=== PATIENT | male | born 1955 | race Caucasian/White ===

== ENCOUNTER 2016-12-14 08:11 | Emergency (ER) | payer MEDICARE, MEDICAID ==
[~2016-12-14] VITALS: Ht 172.7 cm; Wt 95.3 kg
[~2016-12-14 08:11] MED LIST: ASPIRIN CHILDRE81 M1 PO; BACTRIM DS 8001 TAB PO; BROMFED DM 480480 ML PO; DIOVAN160 MG PO; KEFLEX 500MG.500 MG PO; LEVAQUIN 750 M750 MG PO; LISINOPRIL 20MG20 MG PO; LOPRESSOR 25MG.25 MG PO; MECLIZINE 25MG25 MG PO; NEXIUM20 MG PO; PHENERGAN 12.12.5 M1 PO; PLETAL 100MG T100 MG PO; PREDNISONE 20MG20 MG PO; PREVALITE 4GM PO4 GM PO; PRILOSEC20 M1 PO; TRAMADOL 50MG T50 MG PO
[2016-12-14] MEDS ORDERED: CLINDAMYCIN HC300 MG PO (08:41)
--- NOTE | 2016-12-14 08:43 | Emergency Room Report ---
History of Present Illness Time Seen by MD Selby Presenting Problem in Triage Pt arrived:Walked Presenting Problem:LEFT HAND INJURY Onset of symptoms date/time:12/14/1606/01/1099 or onset unknown for: Treatment Prior to Arrival: [facility] [facility] Provided by: Sepsis Risk Assessment: Temp: 97.0 B/P: 155/94 MAP: 114 Pulse: 104 Resp: 20 Recent fever? N Clinical Suspician of Infection? N Mental Status: 1 - Regular (Normal Baseline) Sepsis Risk:Possible Sepsis Risk Have you (or family members/close friends) recently traveled outside the [place]? N If Yes, where/when: Have you had exposure to infectious disease within the past month? N TB? Other? Specify: pt tripped over a fan last night getting up to [employer] bathroom at 11pm. 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 He states he does not think his hand is broken, but that it has become swollen. pt does not know when his last tetanus shot was. Has some moderate achy pain on the back of his hand he denies any wrist pain he states he is moving his fingers as well as he normally does he is chronically not able to extend his fingers. ALLERGIES Coded Allergies: pneumococcal vaccine (Mild, 09/01/15) Home Medications Active Scripts MECLIZINE HCL (Meclizine 25MG) 25 MG PO QID #40 TABLET Prov: 09/08/15 Metoprolol Tartrate (Lopressor) 25 MG PO BID #60 Ref 2 Prov: 03/05/11 Reported Medications Aspirin 81 MG PO DAILY OMEPRAZOLE MAGNESIUM (Prilosec 20MG) 20 MG PO DAILY Valsartan (Diovan 160MG) 160 MG PO DAILY History Medical History General CAD? No Angina: No CT: No Hypertension? Yes Hyperlipidemia? Yes CHF? No DVT? No PE? No COPD? No Asthma? No Anemia? No GERD? Yes Gastric ulcers? No GI Bleed? No Hernia? No Thyroid Problems? No Hypothyroidism? No CVA? Yes Seizures? No Diabetes? No Renal Insuffiency? No End Stage Renal Disease? No UTI? No Stones? No BPH? No GB Disease: Yes Nephritic Syndrome? No Asplenia? No Hepatitis? No Sickle Cell Disease? No Arthritis? No Migraines? No Cataracts? No Glaucoma? No MRSA? No HIV? No TB? No Anxiety? No Depression? No Cancer? No More? No Immunization Hx DT/Tetanus > 10 Years Ago Flu 2012-FSN Pneumonia Excluded/Contraindicated Surgical Hx Previous Surgery?Y GALLBLADDER HAND SURGERY (CHILD) FOOT SURGERY (CHILD) Family History Family Hx Diabetes No CAD No Hypertension Yes Hyperlipidemia Yes Cancer No TB No Social History Smoking Hx Smoker: Current Every Day Smoker Tobacco: No Type Cigarettes Packs/day N/A Alcohol Alcohol: Yes Review of Systems All Other Systems Reviewed and Negative Physical Exam Vital Signs Vital Signs Date Time Temp Pulse Resp B/P Pulse O2 O2 Flow FiO2 Ox Delivery Rate 12/14 0815 97.0 104 20 155/94 97 General Appearance: Nontoxic Head: Normocephalic, without obvious abnormality, atraumatic. Eyes: conjunctiva/corneas clear ENT: Mucous membranes moist. Neck: No jugular venous distention. Extremities: no edema Musculoskeletal: left hand patient has swelling and contusion and abrasion on the posterior aspect of the left hand. He has some scabs there and edema and swelling on the back of his hand he states his hand is nontender his wrist is nontender. The refill intact pulses intact. His hand is basically chronically contractured with limited mobility he's not able to extend his fingers at baseline. He states his movement in his hand is at its baseline. No scaphoid tenderness. Skin: No rashes or lesions to exposed skin. Neurologic: Alert. No gross focal deficits Psychiatric: Normal affect (Erasmo SLADE, Addy) General Appearance normal appearance Respiratory Status No: respiratory distress. Cardiovascular no JVD Neurologic alert Medical Decision Making LABS/Meds/Orders Pt receiving controlled substance in ED? No Results/Orders Orders Procedure Date/time Status WOUND CARE PER NURSE 12/14 0828 Active HAND-LT-3 VIEWS 12/14 0817 Active XRAY/CT/US XRAY/CT/US XRAY hand XR interpretation by reviewed by me Xray Results no fracture seen (RIGHT hand no fracture noted) Comment LEFT hand no fracture Departure Departure Time of Disposition 0838 Disposition DC Home or Self Care(routine) Clinical Impression Primary Impression: Contusion of hand, left Condition STABLE Referrals Andrew Collins MD Patient Instructions Contusion Additional Instructions Wash hands twice a day with soap and water Take antibiotics Return if worse or any signs of infection develop Follow-up with the orthopedic doctor as needed if not improving Discharge Counseling Counseled pt/family regarding diagnosis, test results, medications/RX, home care, follow up needs Prescriptions Current Visit Scripts Clindamycin Hcl (Clindamycin 300MG) 300 MG PO TID #30 CAP ED Critical Care Critical Care No at 0842
--- NOTE | 2016-12-14 08:56 | RADIOLOGY REPORT PS360 ---
HAND-LT-3 VIEWS HISTORY: FALL ORDERING PHYSICIAN: Addy Zimmerman MD PATIENT AGE: 61 years COMPARISON: None FINDINGS: No fracture or dislocation. No lytic or blastic change. There is normal mineralization.. The joint spaces are well-preserved. No significant degenerative/arthritic changes. No erosive changes evident.. There is prominent diffuse soft tissue swelling particularly of the dorsum of the hand, there are no foreign bodies IMPRESSION: Soft tissue injury, no fracture seen
--- OUTSIDE RECORDS SUMMARY | 2016-12-14 08:57 | External Medical Summary Rpt ---
Author Author , NELIDA KRAUSE Address Unknown Phone [email or web address] Care Team Providers Care Corridor Redevelopment Manager Name Role Phone MAGDA DANIELLE, MAGDA Unavailable Unavailable [facility] Unavailable Unavailable SERVICE, [facility] Unavailable Unavailable SERVICE, [facility] Unavailable Unavailable [place], [facility] Unavailable Unavailable [place], [facility] [place] FLYNN TERESSA, Unavailable Unavailable FLYNN TERESSA FLYNN TERESSA, Unavailable Unavailable FLYNN TERESSA [facility] Unavailable Unavailable [place], [facility] [place] FALLUJI LUKAS, FALLUJI Unavailable Unavailable [facility] FALLUJI ULKAS, FALLUJI Unavailable Unavailable [facility] Unavailable Unavailable [facility], [facility] Unavailable Unavailable ASSOCIATES, [facility] Unavailable Unavailable TRANSPORTATION SER, [facility] FOSTER JAM, FOSTER Unavailable Unavailable JAM FANY HUSAM, FANY Unavailable Unavailable HUSAM [facility] Unavailable Unavailable INC, [facility] Un[facility] Un[facility], [facility] PATELENRRIQUE GOODWIN A, Unavailable Unavailable PATELENRRIQUE GOODWIN A [facility] Un[facility] Un[facility], [facility] Joellen Huang MD, Unavailable Unavailable Joellen Huang MD [facility] Unavailable Unavailable SERVICES, [facility] JOSEFINA CLEMONS, Unavailable Unavailable JOSEFINA CLEMONS, Unavailable Unavailable JENNY MCCABE, Unavailable Unavailable JENNY DECKER MULBERRY SRINIVAS, Unavailable Unavailable MULBERRY SRINIVAS MULBERRY MATI T, Unavailable Unavailable MULBERRY, MATI T [facility], Unavailable Unavailable [facility], Unavailable Unavailable Liban MARCOS, Unavailable Unavailable Liban [facility] Unavailable Unavailable LAB, [facility] Unavailable Unavailable LAB, [facility] Yony Kowalski MD, Unavailable Unavailable Yony Kowalski MD [facility] Unavailable Unavailable EQUIPME, [facility] Unavailable Unavailable EQUIPME, [facility] Unavailable Unavailable CLINIC, [facility] Purpose Continuity of Care Document - 08-08-2007 through 2016 Problems Code Diagnosis DOS Provider Status I10 ESSENTIAL 09-12-2015 [facility] HYPERTENSIO [facility] N K219 GASTRO-ESOP 09-12-2015 [facility] REFLUX [facility] DISEASE INC WITHOUT ESOPHAGITIS [id number] ABRASION OF 09-12-2015 [facility] RIGHT [facility] WRIST INC INITIAL ENCOUNTER H8303 LABYRINTHIT 09-08-2015 [facility] P R531 WEAKNESS 09-08-2015 [facility] SERVICE R55 SYNCOPE AND 09-08-2015 [facility] COLLAPSE AMBULANCE SERVICE [id number] OTHER LONG 09-08-2015 [facility] P DRUG THERAPY 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 [id number] CELLULITIS 09-03-2015 [facility] MEDICAL EQUIPME 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 R69 ILLNESS 09-03-2015 [facility] U[place]PECIFIED TRANSPORT[place] 83383 ASTHMA, 06-14-2014 [place] UNSPECIFIED [place] P UNSPECIFIED STATUS 7862 COUGH 06-14-2014 [facility] 041.19 041.19 06-15-2013 [place] BACTERIAL [facility] INFECTION Hospital DUE TO OTHER STAPHYLOCOC CUS 041.7 041.7 06-15-2013 [place] PSEUDOMONAS [facility] INFECT NOS Hospital 272.4 272.4 06-15-2013 [place] HYPERLIPIDE [facility] NEC/NOS Hospital 401.9 401.9 06-15-2013 [place] HYPERTENSIO [facility] N NOS Hospital 440.23 440.23 06-15-2013 [place] ATHEROSCL [facility] SWINOMISH Hospital ARTER EXTREMITIES W ULCERATION 530.81 530.81 06-15-2013 [place] ESOPHAGEAL [facility] REFLUX Hospital 682.7 682.7 06-15-2013 [place] CELLULITIS [facility] OF FOOT Hospital 707.14 707.14 06-15-2013 [place] ULCER OF [facility] HEEL AND Hospital MIDFOOT 443.9 443.9 05-17-2013 [place] PERIPH [facility] VASCULAR Hospital DIS NOS 564.00 564.00 05-17-2013 [place] UNSPEC [facility] CONSTIPATIO Hospital N 682.9 682.9 05-17-2013 [place] CELLULITIS [facility] 692.9 692.9 05-17-2013 [place] DERMATITIS [facility] 755.50 755.50 05-17-2013 [place] UPPER LIMB [facility] ANOMALY [facility] 755.67 755.67 05-17-2013 [facility] ANOMALIES [facility] OF FOOT [facility] V14.8 V14.8 05-17-2013 [facility] HX-DRUG [facility] ALLERGY [facility] V58.62 V58.62 05-17-2013 [facility] ENCOUNT FOR [facility] LONG-TERM(C URRENT) USE OF ANTIBIOTICS (AFTERCARE) V58.69 V58.69 OTH 05-17-2013 [facility] MED,LT,[facility] ENT USE Hospital 6827 CELLULITIS 05-07-2013 FLYNN AND ABSCESS TERESSA OF FOOT EXCEPT TOES 4019 UNSPECIFIED 04-20-2013 [facility] HYPERTENSIO INC N 6829 CELLULITIS 04-20-2013 [facility] AND ABSCESS [facility] OF SERVICE UNSPECIFIED SITE 69288 PAIN IN 04-20-2013 [facility] JOINT, AMBULANCE ANKLE AND SERVICE FOOT 93026 SWELLING OF 04-20-2013 FLYNN LIMB TERESSA 276.1 276.1 12-21-2012 [facility] HYPOSMOLALI [facility] 276.51 276.51 12-21-2012 [facility] DEHYDRATION [facility] 575.8 575.8 DIS 12-21-2012 Sofi OF [facility] GALLBLADDER [facility] NEC 787.03 787.03 12-21-2012 [facility] VOMITING [facility] 81436 ESOPHAGEAL 10-03-2012 [facility] R REFLUX H V7644 SPECIAL 10-03-2012 [facility] R SCREENING H MALIGNANT NEOPLASM OF PROSTATE 2724 OTHER AND 09-30-2011 [facility] UNSPECIFIED [facility]ATES HYPERLIPIDE FREDDIE 7802 SYNCOPE AND 05-17-2011 FALLU[facility]I [facility] COLLAPSE 4011 ESSENTIAL 04-12-2011 [facility]I [facility] HYPERTENSIO N, BENIGN 77525 ATRIAL 03-04-2011 [place] FIBRILLATIO [facility] P 7851 PALPITATION 03-04-2011 [facility] CARDIOLOGY CLINIC 4293 CARDIOMEGAL 03-03-2011 [facility] 436 ACUTE BUT 03-03-2011 [facility] ILL-DEFINED AMBULANCE SERVICE CEREBROVASC ULAR DISEASE 7801 HALLUCINATI 03-03-2011 [facility] 36166 OTHER 03-03-2011 [place] [facility] FAT[facility]UE [facility] V5869 LONG-TERM 03-03-2011 [facility] (CURRENT) [facility] USE OF INC OTHER MEDICATIONS 4779 ALLERGIC 01-15-2011 [facility] RHINITIS [facility] CAUSE UNSPECIFIED 7904 NONSPEC 01-15-2011 [facility] ELEVATION [facility] OF LEVELS OF TRANSAMINAS E/LDH 7948 NONSPECIFIC 01-15-2011 [facility] ABNORMAL PHYSICIANS RESULTS [facility]IV[facility] FUNCTION STUDY 63906 ULCERATIVE 01-06-2011 [facility] BLEPHARITIS JAM 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 2382 NEOPLASM OF 12-30-2010 [facility] BEHAVIOR OF INC SKIN 3689 UNSPECIFIED 12-30-2010 JOSEFINA VISUAL JAM DISTURBANCE 29886 OTHER 12-30-2010 PATHOLOGY & SEBORRHEIC CYTOLOGY KERATOSIS LAB 20859 NONEXUDATIV 12-02-2010 [facility] E SENILE JAM MACULAR DEGENERATIO N RETINA 7840 HEADACHE 10-16-2010 [facility] 47955 POST-TRAUMA 08-10-2010 [facility] TIC [facility] HEADACHE UNSPECIFIED 460 ACUTE 07-21-2010 [facility] NASOPHARYNG [facility] ITIS 2761 HYPOSMOLALI 07-17-2010 [facility] TY AND/OR ASSOCIATES HYPONATREMI A 920 CONTUSION 07-13-2010 [place] [facility] NECK EXCEPT EYE V0481 NEED 04-03-2010 [facility] PROPHYLACTI ASS[facility] C VACCINATION &INOCULATIO N FLU 9895 TOXIC 01-09-2009 [facility] EFFECT OF ASSOCIATES VENOM 7242 LUMBAGO 08-22-2008 [facility] 60523 CORNEAL 02-09-2008 PATEL, [place] A [address] PAIN IN 01-08-2008 [place] [facility] THIGH 7295 PAIN IN 08-11-2007 [facility] SOFT [facility] TISSUES OF LIMB Allergies, Adverse Reactions, Alerts Type Allergy to substance Drug Allergy Adverse Reaction to Substance Substance Reaction Severity NO KNOWN ALLERGIES Unknown Unknown Pneumococcal Vaccine I-RASH Unknown Medications Na ND Rx Da Fi Fi Am Da Di Ph RX Ph St me C No te ll ll ou ys ag ar # ys at rm s nt no ma ic us Or Da si cy ia de te s n re d MU 45 01 1 No PI 80 -3 RO 20 0- Lo CI 11 20 ng N 22 14 er 2% 2 Ac OI ti NT ve ME NT LE 25 01 2 No VO 02 -2 FL 10 9- Lo OX 13 20 ng AC 28 14 er IN 3 Ac 75 ti 0 ve MG /1 50 ML -D 5W 63 01 2 No PI 73 -2 RI 90 9- Lo N 43 20 ng 81 40 14 er 1 MG Ac ti CH ve EW AB LE TA BL ET AV 00 01 2 No AP 08 -2 RO 72 9- Lo 77 20 ng 15 23 14 er 0 1 MG Ac ti TA ve BL ET TY 50 01 0 No LE 58 -2 NO 00 9- Lo L 45 20 ng EX 10 14 er -S 3 TR Ac ti [address] ET HY [address] 40 -2 OC 60 9- Lo OD 36 20 ng ON 56 14 er -A 2 CE Ac TA ti [place] ve NO PH EN 5- 32 5 CI 60 01 3 No LO 50 -2 ST 52 8- Lo AZ 52 20 ng OL 20 14 er 1 10 Ac 0 ti MG ve TA BL ET ME 51 01 3 No TO 07 -2 IN 90 8- Lo OL 25 20 ng OL 52 14 er 0 TA Ac RT ti RA ve TE 25 MG TA B PA 51 01 3 No NT 07 -2 OP 90 8- Lo RA 05 20 ng ZO 12 14 er LE 0 Ac SO ti D ve DR 40 MG TA B LE 68 12 3 No VO 08 -3 FL 40 0- Lo OX 48 20 ng AC 30 13 er IN 1 Ac 75 ti 0 ve MG TA BL ET CI 60 12 5 No LO 50 -2 ST 52 8- Lo AZ 52 20 ng OL 20 13 er 1 10 Ac 0 ti MG ve TA BL ET 63 12 6 No PI 73 -2 RI 90 7- Lo N 43 20 ng 81 40 13 er 1 MG Ac ti CH ve EW AB LE TA BL ET FL 00 12 6 No UC 17 -2 ON 25 7- Lo AZ 41 20 ng OL 14 13 er E 6 10 Ac 0 ti MG ve TA BL ET AV 00 12 6 No AP 08 -2 RO 72 7- Lo 77 20 ng 15 23 13 er 0 1 MG Ac ti TA ve BL ET [place] 11 12 6 No RA 52 -2 LA 37 7- Lo X 26 20 ng PO 80 13 er WD 8 ER Ac ti PA ve CK ET LE 25 12 2 No VO 02 -2 FL 10 7- Lo OX 13 20 ng AC 28 13 er IN 3 Ac 75 ti 0 ve MG /1 50 ML -D 5W HY [address] 40 -2 OC 60 6- Lo OD 36 20 ng ON 56 13 er -A 2 CE Ac TA ti [place] ve NO PH EN 5- 32 5 AP 42 12 0 No LI 02 -2 SO 30 6- Lo L 10 20 ng 5T 40 13 er 1 UN Ac IT ti S/ ve 0. 1 ML AL ME 51 12 7 No TO 07 -2 IN 90 6- Lo OL 25 20 ng OL 52 13 er 0 TA Ac RT ti RA ve TE 25 MG TA B PA 51 12 7 No NT 07 -2 OP 90 6- Lo RA 05 20 ng ZO 12 13 er LE 0 Ac SO ti D ve DR 40 MG TA B MU 45 12 7 No PI 80 -2 RO 20 6- Lo CI 11 20 ng N 22 13 er 2% 2 Ac OI ti NT ve ME NT SI 00 12 7 No LV 59 -2 ER 10 6- Lo 81 20 ng VIRGEN 05 13 er LF 5 AD Ac IA ti ZI ve NE 1% CR EA M CL 51 12 7 No OB 67 -2 ET 21 6- Lo 25 20 ng OL 80 13 er 1 0. Ac 05 ti % ve CR EA M CE 60 12 7 No FE 50 -2 PI 50 6- Lo ME 83 20 ng 40 13 er HC 4 L Ac 1 ti GM ve AL SO 00 12 7 No DI 40 -2 UM 97 6- Lo 98 20 ng CH 43 13 er LO 6 RI Ac DE ti ve 0. 9% SO JARRETT TI ON LE 25 12 1 No VO 02 -2 FL 10 5- Lo OX 13 20 ng AC 28 13 er IN 3 Ac 75 ti 0 ve MG /1 50 ML -D 5W VA 00 12 2 No NC 40 -2 OM 96 4- Lo YC 53 20 ng IN 30 13 er 1 1 Ac GM ti ve AL SO 00 12 2 No DI 40 -2 UM 97 4- Lo 98 20 ng CH 30 13 er LO 2 RI Ac DE ti ve 0. 9% SO JARRETT TI ON 63 12 2 No PI 73 -2 RI 90 4- Lo N 43 20 ng 81 40 13 er 1 MG Ac ti CH ve EW AB LE TA BL ET AV 00 12 2 No AP 08 -2 RO 72 4- Lo 77 20 ng 15 23 13 er 0 1 MG Ac ti TA ve BL ET FL 00 12 2 No UC 17 -2 ON 25 4- Lo AZ 41 20 ng OL 14 13 er E 6 10 Ac 0 ti MG ve TA BL ET HY [address] 40 -2 OC 60 4- Lo OD 36 20 ng ON 56 13 er -A 2 CE Ac TA ti [place] ve NO PH EN 5- 32 5 MA 00 12 0 No PA 90 -2 P 41 4- Lo 32 98 20 ng 5 26 13 er MG 1 Ac TA ti BL ve ET IN [address] -2 RU 4- Lo CT 20 ng IO 13 er N IN Ac FO ti RM ve AT IO N VA 00 12 0 No NC 40 -2 OM 96 3- Lo YC 53 20 ng IN 30 13 er 1 1 Ac GM ti ve AL SO 00 12 0 No DI 40 -2 UM 97 3- Lo 98 20 ng CH 30 13 er LO 2 RI Ac DE ti ve 0. 9% SO JARRETT TI ON HY [address] 40 -2 OC 60 3- Lo OD 36 20 ng ON 56 13 er -A 2 CE Ac TA ti [place] ve NO PH EN 5- 32 5 Sa 63 12 1 No li 80 -2 ne 70 3- Lo 10 20 ng Fl 07 13 er us 5 h Ac 10 ti ML ve Sy ri ng e RA 00 12 0 No D- 27 -2 IS 01 3- Lo OV 31 20 ng UE 63 13 er -3 5A 70 Ac ; ti 10 ve 0M L RA 63 12 0 No D- 80 -2 SA 70 3- Lo LI 10 20 ng NE 07 13 er 5A FL Ac US ti H ve 10 ML SY RI NG E FL 00 12 0 No UC 17 -2 ON 25 3- Lo AZ 41 20 ng OL 34 13 er E 6 20 Ac 0 ti MG ve TA BL ET ME 51 12 3 No TO 07 -2 IN 90 3- Lo OL 25 20 ng OL 52 13 er 0 TA Ac RT ti RA ve TE 25 MG TA B PA 51 12 3 No NT 07 -2 OP 90 3- Lo RA 05 20 ng ZO 12 13 er LE 0 Ac SO ti D ve DR 40 MG TA B MU 45 12 3 No PI 80 -2 RO 20 3- Lo CI 11 20 ng N 22 13 er 2% 2 Ac OI ti NT ve ME NT SI 00 12 3 No LV 59 -2 ER 10 3- Lo 81 20 ng VIRGEN 05 13 er LF 5 AD Ac IA ti ZI ve NE 1% CR EA M Sa 63 12 0 No li 80 -0 ne 70 6- Lo 10 20 ng Fl 07 13 er us 5 h Ac 10 ti ML ve Sy ri ng e VA 00 12 0 No NC 40 -0 OM 96 6- Lo YC 53 20 ng IN 30 13 er 1 1 Ac GM ti ve AL SO 00 12 0 No DI 40 -0 UM 97 6- Lo 98 20 ng CH 30 13 er LO 2 RI Ac DE ti ve 0. 9% SO JARRETT TI ON SO 00 08 0 No DI 40 -0 UM 97 8- Lo 98 20 ng CH 30 13 er LO 9 RI Ac DE ti ve 0. 9% SO JARRETT TI ON Sa 63 08 0 No li 80 -0 ne 70 8- Lo 10 20 ng Fl 07 13 er us 5 h Ac 10 ti ML ve Sy ri ng e ON 00 08 0 No DA 64 -0 NS 16 8- Lo ET 08 20 ng RO 02 13 er N 5 HC Ac L ti 4 ve MG /2 ML AL BR 60 09 09 1 18 5 EA 24 NO Ac OM 43 -2 -[address] 25 RF ti FE 20 6- 6- 00 SI 46 LE ve D 83 20 20 0 DE ET DM 71 11 11 R 6 PH CO AR HE UG MA NR H CY Y SY RU OF P CY NT HI AN A LO 45 09 09 2 30 30 EA 23 NO Ac RA 80 -0 -[address] 93 RF ti TA 20 2- 2- 00 SI 74 LE ve DI 65 20 20 DE ET NE 08 11 11 R 7 PH 10 AR HE MA NR MG CY Y TA OF BL ET CY NT HI AN A 54 03 03 0 18 5 EA 21 NO Ac 83 -0 -[address] 60 RF ti 80 8- 8- 00 SI 93 LE ve 54 20 20 0 DE ET 48 11 11 R 0 PH AR HE MA NR CY Y OF CY NT HI AN A BE 67 02 02 0 30 10 EA 21 MU Ac NZ 87 -0 -[address] 11 LB ti ON 70 5- 5- 00 SI 62 ER ve AT 10 20 20 DE RY AT 60 11 11 E 1 PH BR 20 AR IA 0 MA N MG CY T CA OF PS UL CY E NT HI AN A 60 01 01 0 18 5 EA 21 NO Ac 25 -3 -[address] 03 RF ti 80 SI 10 LE ve 41 20 20 0 DE ET 50 11 11 R 4 PH AR HE MA NR CY Y OF CY NT HI AN A 60 11 11 0 18 5 EA 20 NO Ac 25 -2 -[address] 18 RF ti 80 SI 31 LE ve 23 20 20 0 DE ET 91 10 10 R 6 PH AR HE MA NR CY Y OF CY NT HI AN A Immunization Name Date Rout CVX Reac Dose Comm Prov Is Faci e tion ent ider Refu lity Give sed n IIV3 03-16 141 NORF No FAMI 9-20 LEET LY VACC 10 R H CARE INE SPLI ASSO T CIAT VIRU ES S 0.5 ML DOSA GE IM USE IIV3 11 141 NORF No FAMI 0-20 LEET LY VACC 09 , R CARE INE HENR SPLI Y ASSO T CIAT VIRU ES S 0.5 ML DOSA GE IM USE Vital Signs 06-15-2013 11:55 Name Value Interpretat Reference Comment ion Range Body 98.4 [degF] Temperature BP 67 mm[Hg] Diastolic BP Systolic 125 mm[Hg] Heart 98 /min Rate/Pulse Respiratory 18 /min Rate 06-15-2013 08:00 Name Value Interpretat Reference Comment ion Range O2% 97 % 06-12-2013 15:35 Name Value Interpretat Reference Comment ion Range O2% 98 % 06-12-2013 12:04 Name Value Interpretat Reference Comment ion Range Body 98.3 [degF] Temperature BP 93 mm[Hg] Diastolic BP Systolic 160 mm[Hg] Heart 89 /min Rate/Pulse Height 172.72 cm Respiratory 20 /min Rate Weight 223 [lb_av] Measured Weight 101.237 kg Measured 05-17-2013 10:30 Name Value Interpretat Reference Comment ion Range Body 96.6 [degF] Temperature BP 60 mm[Hg] Diastolic BP Systolic 122 mm[Hg] Heart 99 /min Rate/Pulse Respiratory 16 /min Rate 05-17-2013 08:00 Name Value Interpretat Reference Comment ion Range O2% 95 % 05-10-2013 16:00 Name Value Interpretat Reference Comment ion Range Body 97.6 [degF] Temperature BP 84 mm[Hg] Diastolic BP Systolic 145 mm[Hg] Height 172.72 cm O2% 99 % Respiratory 20 /min Rate Weight 214 [lb_av] Measured Weight 97.070 kg Measured 05-10-2013 11:58 Name Value Interpretat Reference Comment ion Range Heart 92 /min Rate/Pulse 05-10-2013 10:23 Name Value Interpretat Reference Comment ion Range Body 97.9 [degF] Temperature BP 70 mm[Hg] Diastolic BP Systolic 126 mm[Hg] Heart 92 /min Rate/Pulse Respiratory 16 /min Rate 05-10-2013 08:20 Name Value Interpretat Reference Comment ion Range O2% 98 % 05-07-2013 12:00 Name Value Interpretat Reference Comment ion Range Height 172.72 cm Weight 97.524 kg Measured 05-07-2013 09:06 Name Value Interpretat Reference Comment ion Range Body 98.4 [degF] Temperature BP 77 mm[Hg] Diastolic BP Systolic 145 mm[Hg] Heart 80 /min Rate/Pulse O2% 98 % Respiratory 20 /min Rate Weight 0 [oz_av] Measured 04-20-2013 13:13 Name Value Interpretat Reference Comment ion Range BP 74 mm[Hg] Diastolic BP Systolic 144 mm[Hg] Heart 90 /min Rate/Pulse O2% 98 % Respiratory 16 /min Rate 04-20-2013 10:07 Name Value Interpretat Reference Comment ion Range BP 65 mm[Hg] Diastolic BP Systolic 126 mm[Hg] Heart 62 /min Rate/Pulse O2% 100 % Respiratory 20 /min Rate 12-21-2012 15:23 Name Value Interpretat Reference Comment ion Range Body 98.2 [degF] Temperature BP 90 mm[Hg] Diastolic BP Systolic 161 mm[Hg] Heart 87 /min Rate/Pulse O2% 96 % Respiratory 20 /min Rate 12-21-2012 12:12 Name Value Interpretat Reference Comment ion Range BP 90 mm[Hg] Diastolic BP Systolic 142 mm[Hg] Heart 78 /min Rate/Pulse O2% 98 % Respiratory 20 /min Rate Results Labs Lab Lab Date Result Refere Interp Status Commen Order Detail nces retati t Range on BASIC METABOLIC PANEL (06-12-2013 12:45) Glucose 91 74-106 complet 014 mg/dL ed Bld-mCn 12:45 c BUN 8 mg/dL 7-18 complet Bld-mCn 014 ed c 12:45 Creat 0.9 0.8-1.3 complet SerPl-m 014 mg/dL ed Cnc 12:45 Creat 130 50-200 complet Cl 014 ML/MIN ed predict 12:45 ed SerPl C-G-vRa te GFR/BSA 87 Greater complet .pred 014 ML/MIN than ed SerPl 12:45 60 Schwart z-vRate Sodium 131 136-145 complet SerPl-s 014 mmoL/L ed Cnc 12:45 Potassi 4.3 3.5-5.1 complet um 014 mmoL/L ed SerPl-s 12:45 Cnc Chlorid 96 98-107 complet e 014 mmoL/L ed SerPl-s 12:45 Cnc CO2 30 21.0-32 complet SerPl-s 014 mmoL/L .0 ed Cnc 12:45 Calcium 9.2 8.5-10. complet 014 mg/dL 1 ed SerPl-m 12:45 Cnc CBC with AUTO DIFF (06-12-2013 12:45) WBC # 7.4 4.8-10. complet Bld 014 K/MM3 8 ed Auto 12:45 RBC # 4.26 4.6-6.2 complet Bld 014 M/mm3 ed Auto 12:45 Hgb 14.1 14.1-18 complet Bld-mCn 014 g/dL .0 ed c 12:45 Hct Fr 38.9 % 42.0-52 complet Bld 014 .0 ed 12:45 MCV RBC 91.3 fl 82.2-97 complet 014 .8 ed 12:45 MCH RBC 33.0 pg 27-31.2 complet Qn 014 ed Auto 12:45 MEAN 36.2 31.8-35 complet CORPUSC 014 g/dl .4 ed ULAR 12:45 HGB CONC RDW RBC 14.8 % 11.5-17 complet Auto 014 .5 ed 12:45 Platele 215 142-424 complet t Bld 014 K/mm3 ed Ql 12:45 Manual MEAN 7.5 fl 7.4-10. complet PLATELE 014 4 ed T 12:45 VOLUME Granulo 74.1 % 37.0-80 complet cytes 014 .0 ed Fr Bld 12:45 Auto LYMPH % 19.0 % 10-50 complet 014 ed 12:45 Monocyt 06-12-2 5.6 % 1.7-9.3 complet es Fr 014 ed Bld 12:45 Auto Eosinop 2 1.0 % 0.1-12. complet hil Fr 014 0 ed Bld 12:45 Auto Basophi 2 0.4 % 0.1-2.0 complet ls Fr 014 ed Bld 12:45 Auto Granulo 2 5.5 1.3-8.0 complet cytes # 014 K/mm3 ed Bld 12:45 Auto Lymphoc 1.4 0.7-4.5 complet ytes Fr 014 K/mm3 ed Bld 12:45 Auto Monocyt 06-12-2 0.4 0.1-1.0 complet es # 014 K/mm3 ed Bld 12:45 Auto Eosinop 2 0.1 0.0-0.4 complet hil # 014 K/mm3 ed Bld 12:45 Auto Basophi 06-12-2 0.0 0-0.2 complet ls # 014 K/MM3 ed Bld 12:45 Auto Vancomycin Trough SerPl-mCnc (05-08-2013 20:30) Vancomy 12.9 5.0-10. complet katalina 013 mcg/mL 0 ed Trough 20:30 SerPl-m Cnc COMPREHENSIVE METABOLIC PANEL (05-08-2013 06:30) Glucose 92 74-106 complet 013 mg/dL ed Bld-mCn 06:30 c BUN 7 mg/dL 7-18 complet Bld-mCn 013 ed c 06:30 Creat 1.0 0.8-1.3 complet SerPl-m 013 mg/dL ed Cnc 06:30 Creat 112 50-200 complet Cl 013 ML/MIN ed predict 06:30 ed SerPl C-G-vRa te GFR/BSA 77 Greater complet .pred 013 ML/MIN than ed SerPl 06:30 60 Schwart z-vRate Sodium 136 136-145 complet SerPl-s 013 mmoL/L ed Cnc 06:30 Potassi 05-08-2 4.3 3.5-5.1 complet um 013 mmoL/L ed SerPl-s 06:30 Cnc Chlorid 05-08-2 100 98-107 complet e 013 mmoL/L ed SerPl-s 06:30 Cnc CO2 05-08-2 28 21.0-32 complet SerPl-s 013 mmoL/L .0 ed Cnc 06:30 Calcium 05-08-2 8.7 8.5-10. complet 013 mg/dL 1 ed SerPl-m 06:30 Cnc Prot 05-08-2 6.2 6.4-8.2 complet SerPl-m 013 gm/dL ed Cnc 06:30 Albumin 05-08-2 3.2 3.4-5.0 complet 013 gm/dL ed SerPl-m 06:30 Cnc Globuli 05-08-2 3.0 1.3-3.2 complet n 013 gm/dL ed Ser-mCn 06:30 c Albumin 2 1.1 UNK 1.1-1.8 complet /Glob 013 ed SerPl-m 06:30 Rto Bilirub 05-08-2 0.8 0.2-1.0 complet 013 mg/dL ed SerPl-m 06:30 Cnc AST 05-08-2 18 U/L 15-37 complet SerPl-c 013 ed Cnc 06:30 ALT 05-08-2 54 U/L 30-65 complet SerPl-c 013 ed Cnc 06:30 ALP 05-08-2 107 U/L 50-136 complet SerPl-c 013 ed Cnc 06:30 CBC with AUTO DIFF (05-08-2013 06:30) WBC # 24-2 5.2 4.8-10. complet Bld 013 K/MM3 8 ed Auto 06:30 RBC # 24-2 4.12 4.6-6.2 complet Bld 013 M/mm3 ed Auto 06:30 Hgb 05-08-2 13.5 14.1-18 complet Bld-mCn 013 g/dL .0 ed c 06:30 Hct Fr 05-08-2 37.9 % 42.0-52 complet Bld 013 .0 ed 06:30 MCV RBC 12-24-2 92.0 fl 82.2-97 complet 013 .8 ed 06:30 MCH RBC 12-24-2 32.7 pg 27-31.2 complet Qn 013 ed Auto 06:30 MEAN 12-24-2 35.6 31.8-35 complet CORPUSC 013 g/dl .4 ed ULAR 06:30 HGB CONC RDW RBC 12-24-2 13.7 % 11.5-17 complet Auto 013 .5 ed 06:30 Platele 12-24-2 274 142-424 complet t Bld 013 K/mm3 ed Ql 06:30 Manual MEAN 12-24-2 7.4 fl 7.4-10. complet PLATELE 013 4 ed T 06:30 VOLUME Granulo 12-24-2 58.4 % 37.0-80 complet cytes 013 .0 ed Fr Bld 06:30 Auto LYMPH % 12-24-2 33.5 % 10-50 complet 013 ed 06:30 Monocyt 12-24-2 5.8 % 1.7-9.3 complet es Fr 013 ed Bld 06:30 Auto Eosinop 12-24-2 1.6 % 0.1-12. complet hil Fr 013 0 ed Bld 06:30 Auto Basophi 12-24-2 0.8 % 0.1-2.0 complet ls Fr 013 ed Bld 06:30 Auto Granulo 12-24-2 3.1 1.3-8.0 complet cytes # 013 K/mm3 ed Bld 06:30 Auto Lymphoc 12-24-2 1.8 0.7-4.5 complet ytes Fr 013 K/mm3 ed Bld 06:30 Auto Monocyt 12-24-2 0.3 0.1-1.0 complet es # 013 K/mm3 ed Bld 06:30 Auto Eosinop 12-24-2 0.1 0.0-0.4 complet hil # 013 K/mm3 ed Bld 06:30 Auto Basophi 12-24-2 0.0 0-0.2 complet ls # 013 K/MM3 ed Bld 06:30 Auto ESR Bld Qn 15M (05-07-2013 13:00) ESR Bld 23-2 17 0-20 complet Qn 15M 013 mm/hr ed 13:00 BASIC METABOLIC PANEL (05-07-2013 10:09) Glucose 12-23-2 104 74-106 complet 013 mg/dL ed Bld-mCn 10:09 c BUN 05-07-2 6 mg/dL 7-18 complet Bld-mCn 013 ed c 10:09 Creat 23-2 1.0 0.8-1.3 complet SerPl-m 013 mg/dL ed Cnc 10:09 Creat 05-07-2 105 50-200 complet Cl 013 ML/MIN ed predict 10:09 ed SerPl C-G-vRa te GFR/BSA 77 Greater complet .pred 013 ML/MIN than ed SerPl 10:09 60 Schwart z-vRate Sodium 133 136-145 complet SerPl-s 013 mmoL/L ed Cnc 10:09 Potassi 05-07-2 4.6 3.5-5.1 complet um 013 mmoL/L ed SerPl-s 10:09 Cnc Chlorid 05-07-2 96 98-107 complet e 013 mmoL/L ed SerPl-s 10:09 Cnc CO2 05-07-2 28 21.0-32 complet SerPl-s 013 mmoL/L .0 ed Cnc 10:09 Calcium 05-07-2 9.1 8.5-10. complet 013 mg/dL 1 ed SerPl-m 10:09 Cnc CBC with AUTO DIFF (05-07-2013 10:09) WBC # 12-23-2 6.3 4.8-10. complet Bld 013 K/MM3 8 ed Auto 10:09 RBC # 23-2 4.55 4.6-6.2 complet Bld 013 M/mm3 ed Auto 10:09 Hgb 23-2 14.9 14.1-18 complet Bld-mCn 013 g/dL .0 ed c 10:09 Hct Fr 05-07-2 41.6 % 42.0-52 complet Bld 013 .0 ed 10:09 MCV RBC 05-07-2 91.5 fl 82.2-97 complet 013 .8 ed 10:09 MCH RBC 23-2 32.7 pg 27-31.2 complet Qn 013 ed Auto 10:09 MEAN 23-2 35.7 31.8-35 complet CORPUSC 013 g/dl .4 ed ULAR 10:09 HGB CONC RDW RBC -23-2 13.7 % 11.5-17 complet Auto 013 .5 ed 10:09 Platele 12-23-2 323 142-424 complet t Bld 013 K/mm3 ed Ql 10:09 Manual MEAN -23-2 7.5 fl 7.4-10. complet PLATELE 013 4 ed T 10:09 VOLUME Granulo 12-23-2 61.3 % 37.0-80 complet cytes 013 .0 ed Fr Bld 10:09 Auto LYMPH % 12-23-2 31.9 % 10-50 complet 013 ed 10:09 Monocyt 12-23-2 5.1 % 1.7-9.3 complet es Fr 013 ed Bld 10:09 Auto Eosinop 12-23-2 1.2 % 0.1-12. complet hil Fr 013 0 ed Bld 10:09 Auto Basophi 12-23-2 0.6 % 0.1-2.0 complet ls Fr 013 ed Bld 10:09 Auto Granulo 12-23-2 3.9 1.3-8.0 complet cytes # 013 K/mm3 ed Bld 10:09 Auto Lymphoc 12-23-2 2.0 0.7-4.5 complet ytes Fr 013 K/mm3 ed Bld 10:09 Auto Monocyt 12-23-2 0.3 0.1-1.0 complet es # 013 K/mm3 ed Bld 10:09 Auto Eosinop 12-23-2 0.1 0.0-0.4 complet hil # 013 K/mm3 ed Bld 10:09 Auto Basophi 12-23-2 0.0 0-0.2 complet ls # 013 K/MM3 ed Bld 10:09 Auto COMPREHENSIVE METABOLIC PANEL (04-20-2013 09:15) Glucose 101 74-106 complet 013 mg/dL ed Bld-mCn 09:15 c BUN 5 mg/dL 7-18 complet Bld-mCn 013 ed c 09:15 Creat 0.9 0.8-1.3 complet SerPl-m 013 mg/dL ed Cnc 09:15 Creat 116 50-200 complet Cl 013 ML/MIN ed predict 09:15 ed SerPl C-G-vRa te GFR/BSA 87 Greater complet .pred 013 ML/MIN than ed SerPl 09:15 60 Schwart z-vRate Sodium 130 136-145 complet SerPl-s 013 mmoL/L ed Cnc 09:15 Potassi 4.3 3.5-5.1 complet um 013 mmoL/L ed SerPl-s 09:15 Cnc Chlorid 95 98-107 complet e 013 mmoL/L ed SerPl-s 09:15 Cnc CO2 30 21.0-32 complet SerPl-s 013 mmoL/L .0 ed Cnc 09:15 Calcium 9.2 8.5-10. complet 013 mg/dL 1 ed SerPl-m 09:15 Cnc Prot 7.6 6.4-8.2 complet SerPl-m 013 gm/dL ed Cnc 09:15 Albumin 3.8 3.4-5.0 complet 013 gm/dL ed SerPl-m 09:15 Cnc Globuli 3.8 1.3-3.2 complet n 013 gm/dL ed Ser-mCn 09:15 c Albumin 1.0 UNK 1.1-1.8 complet /Glob 013 ed SerPl-m 09:15 Rto Bilirub 1.8 0.2-1.0 complet 013 mg/dL ed SerPl-m 09:15 Cnc AST 29 U/L 15-37 complet SerPl-c 013 ed Cnc 09:15 ALT 49 U/L 30-65 complet SerPl-c 013 ed Cnc 09:15 ALP 115 U/L 50-136 complet SerPl-c 013 ed Cnc 09:15 CBC with AUTO DIFF (04-20-2013 09:15) WBC # 04-20- 8.0 4.8-10. complet Bld 013 K/MM3 8 ed Auto 09:15 RBC # 04-20- 4.35 4.6-6.2 complet Bld 013 M/mm3 ed Auto 09:15 Hgb 14.6 14.1-18 complet Bld-mCn 013 g/dL .0 ed c 09:15 Hct Fr 40.3 % 42.0-52 complet Bld 013 .0 ed 09:15 MCV RBC 92.6 fl 82.2-97 complet 013 .8 ed 09:15 MCH RBC 33.6 pg 27-31.2 complet Qn 013 ed Auto 09:15 MEAN 36.3 31.8-35 complet CORPUSC 013 g/dl .4 ed ULAR 09:15 HGB CONC RDW RBC 14.4 % 11.5-17 complet Auto 013 .5 ed 09:15 Platele 222 142-424 complet t Bld 013 K/mm3 ed Ql 09:15 Manual MEAN 7.7 fl 7.4-10. complet PLATELE 013 4 ed T 09:15 VOLUME Granulo 81.3 % 37.0-80 complet cytes 013 .0 ed Fr Bld 09:15 Auto LYMPH % 11.2 % 10-50 complet 013 ed 09:15 Monocyt 5.2 % 1.7-9.3 complet es Fr 013 ed Bld 09:15 Auto Eosinop 2 1.8 % 0.1-12. complet hil Fr 013 0 ed Bld 09:15 Auto Basophi 04-20-2 0.4 % 0.1-2.0 complet ls Fr 013 ed Bld 09:15 Auto Granulo 04-20-2 6.5 1.3-8.0 complet cytes # 013 K/mm3 ed Bld 09:15 Auto Lymphoc 04-20-2 0.9 0.7-4.5 complet ytes Fr 013 K/mm3 ed Bld 09:15 Auto Monocyt 04-20-2 0.4 0.1-1.0 complet es # 013 K/mm3 ed Bld 09:15 Auto Eosinop 04-20-2 0.2 0.0-0.4 complet hil # 013 K/mm3 ed Bld 09:15 Auto Basophi 04-20-2 0.0 0-0.2 complet ls # 013 K/MM3 ed Bld 09:15 Auto URINALYSIS/COMPLETE (12-21-2012 14:40) URINE YELLOW YELLOW complet COLOR 013 ed 14:40 URINE 12-21-2 CLEAR CLEAR complet APPEARA 013 ed NCE 14:40 URINE 08-2 NEGATIV NEG complet GLUCOSE 013 E ed - 14:40 DIPSTIC K URINE 08-2 NEGATIV NEG complet BILIRUB 013 E ed IN - 14:40 DIPSTIC K URINE 08-2 TRACE NEG complet KETONE 013 mg/dL ed 14:40 URINE 12-21-2 1.020 1.005-1 complet SPECIFI 013 UNK .030 ed C 14:40 GRAVITY URINE 08-2 NEGATIV NEG complet BLOOD 013 E ed 14:40 URINE 12-21-2 6.0 UNK 5.0-8.5 complet PH 013 ed 14:40 URINE 12-21-2 NEGATIV NEG complet PROTEIN 013 E mg/dL ed - 14:40 DIPSTIC K URINE 08-2 0.2 NEG complet UROBILI 013 E.U./dL ed NOGEN - 14:40 DIPSTIC K URINE 08-2 NEGATIV NEG complet NITRATE 013 E ed - 14:40 DIPSTIC K URINE 08-2 NEGATIV NEG complet LEUK 013 E ed ESTERAS 14:40 E URINE 12-21-2 OCC 0 complet RBC 013 rbc/hpf ed 14:40 URINE 12-21-2 OCC OCC complet SQUAMOU 013 #/hpf ed S CELLS 14:40 URINE 08-2 OCC NONE complet HYALINE 013 #/lpf ed CAST 14:40 COMPREHENSIVE METABOLIC PANEL (12-21-2012 12:00) Glucose 97 74-106 complet 013 mg/dL ed Bld-mCn 12:00 c BUN 6 mg/dL 7-18 complet Bld-mCn 013 ed c 12:00 Creat 1.0 0.8-1.3 complet SerPl-m 013 mg/dL ed Cnc 12:00 ESTIMAT 116 50-200 complet ED 013 ML/MIN ed CREATIN 12:00 INE CLEARAN CE GFR 77 Greater complet (ESTIMA 013 ML/MIN than ed BRANDIN) 12:00 60 Sodium 128 136-145 complet SerPl-s 013 mmoL/L ed Cnc 12:00 Potassi 4.3 3.5-5.1 complet um 013 mmoL/L ed SerPl-s 12:00 Cnc Chlorid 94 98-107 complet e 013 mmoL/L ed SerPl-s 12:00 Cnc CO2 26 21.0-32 complet SerPl-s 013 mmoL/L .0 ed Cnc 12:00 Calcium 8.5 8.5-10. complet 013 mg/dL 1 ed SerPl-m 12:00 Cnc Prot 7.1 6.4-8.2 complet SerPl-m 013 gm/dL ed Cnc 12:00 Albumin 3.7 3.4-5.0 complet 013 gm/dL ed SerPl-m 12:00 Cnc Globuli 3.4 1.3-3.2 complet n 013 gm/dL ed Ser-mCn 12:00 c Albumin 1.1 UNK 1.1-1.8 complet /Glob 013 ed SerPl-m 12:00 Rto Bilirub 1.4 0.2-1.0 complet 013 mg/dL ed SerPl-m 12:00 Cnc AST 25 U/L 15-37 complet SerPl-c 013 ed Cnc 12:00 ALT 51 U/L 30-65 complet SerPl-c 013 ed Cnc 12:00 ALP 88 U/L 50-136 complet SerPl-c 013 ed Cnc 12:00 LIPASE (12-21-2012 12:00) LIPASE 94 U/L 73-393 complet 013 ed 12:00 CBC with AUTO DIFF (12-21-2012 12:00) WBC # 12-21- 4.2 4.8-10. complet Bld 013 K/MM3 8 ed Auto 12:00 RBC # 12-21- 4.42 4.6-6.2 complet Bld 013 M/mm3 ed Auto 12:00 Hgb 14.5 14.1-18 complet Bld-mCn 013 g/dL .0 ed c 12:00 Hct Fr 41.9 % 42.0-52 complet Bld 013 .0 ed 12:00 MCV RBC 08-08-2 94.7 fl 82.2-97 complet 013 .8 ed 12:00 MCH RBC 08-2 32.9 pg 27-31.2 complet Qn 013 ed Auto 12:00 MEAN -08-2 34.7 31.8-35 complet CORPUSC 013 g/dl .4 ed ULAR 12:00 HGB CONC RDW RBC 08-2 13.0 % 11.5-17 complet Auto 013 .5 ed 12:00 Platele 12-21-2 202 142-424 complet t Bld 013 K/mm3 ed Ql 12:00 Manual MEAN 082 8.6 fl 7.4-10. complet PLATELE 013 4 ed T 12:00 VOLUME Granulo 08-2 80.8 % 37.0-80 complet cytes 013 .0 ed Fr Bld 12:00 Auto LYMPH % 08-2 14.0 % 10-50 complet 013 ed 12:00 Monocyt 08-2 3.6 % 1.7-9.3 complet es Fr 013 ed Bld 12:00 Auto Eosinop -08-2 1.2 % 0.1-12. complet hil Fr 013 0 ed Bld 12:00 Auto Basophi -08-2 0.3 % 0.1-2.0 complet ls Fr 013 ed Bld 12:00 Auto Granulo -08-2 3.4 1.3-8.0 complet cytes # 013 K/mm3 ed Bld 12:00 Auto Lymphoc -08-2 0.6 0.7-4.5 complet ytes Fr 013 K/mm3 ed Bld 12:00 Auto Monocyt -08-2 0.2 0.1-1.0 complet es # 013 K/mm3 ed Bld 12:00 Auto Eosinop -08-2 0.1 0.0-0.4 complet hil # 013 K/mm3 ed Bld 12:00 Auto Basophi 08-08-2 0.0 0-0.2 complet ls # 013 K/MM3 ed Bld 12:00 Auto Procedures Procedure DOS Code Location Performer Comment ECG 80881 SOFI MAN ROUTINE 6 [facility] W/LEAST P 12 LDS I&R ONLY GROUND A0425 [facility]OWN MILEAGE 6 [facility] AMBULANCE PER SERVICE SERVICE STATUTE MILE ECG 94391 SOFI FARAH ROUTINE 6 [facility] ECG INC INC W/LEAST 12 LDS TRCG ONLY W/O I&R CREATINE 75680 SOFI FARAH KINASE 6 [facility] TOTAL INC INC DRUG TST G0477 SOFI FARAH PRESUMP;C 6 [facility] PBL BEING INC INC READ DC OPT OBV ONLY AMB A0427 [facility] SERVICE 6 AMBULANCE AMBULANCE ALS SERVICE SERVICE EMERGENCY TRANSPORT LEVEL 1 BLOOD 33715 SOFI FARAH COUNT 6 [facility] COMPLETE INC INC AUTO&[place] [address] SOFI FARAH TROPONIN 6 [facility] QUANTITAT INC INC NATASHA CREATINE 92400 SOFI FARAH KINASE MB 6 [facility] FRACTION INC INC ONLY COMPREHEN 50531 SOFI FARAH SIVE 6 [facility] METABOLIC INC INC PANEL NONEMERG A0120 FEDERATED FEDERATED TRNSPRT: 6 MINI-BUS TRANSPORT TRANSPORT MTN ATION SER ATION SER AREA/OTH SYS WALKER E0143 ELLIOTT ELLIOTT FOLDING 6 HOME HOME WHEELED MEDICAL MEDICAL ADJUSTABL EQUIPME EQUIPME E/FIXED HEIGHT SEAT E0156 ELLIOTT GALLAGHER ATTACHMEN 6 HOME HOME T WALKER MEDICAL MEDICAL EQUIPME EQUIPME RADIOLOGI 75530 SOFI Griggs EXAM 5 [facility] CHEST 2 INC INC VIEWS FRONTAL&L ATERAL RADEX 91787 FLYNN FLYNN FOOT 3 TERESSA TERESSA COMPLETE MINIMUM 3 VIEWS GROUND A0425 [facility] MILEAGE 3 AMBULANCE AMBULANCE PER SERVICE SERVICE STATUTE MILE AMBULANCE A0429 [facility] SERVICE 3 AMBULANCE AMBULANCE BLS [place] [address] SOFI FARAH INFUSION 3 [facility] THERAPY/P INC INC ROPHYLAXI S /DX 1ST TO 1 [place] [address] SOFI FARAH INFUSION 3 [facility] THERAPY INC INC PROPHYLAX IS/DX EA HOUR RADEX 24766 SOFI FARAH FOOT 3 [facility] COMPLETE INC INC MINIMUM 3 VIEWS XTRNL ECG 20165 SOFI FARAH & 48 HR 1 [facility] RECORDING INC INC HOSPITAL G0378 SOFI FARAH OBSERVATI 1 [facility] ON INC INC SERVICE PER [facility] G0378 SOFI FARAH OBSERVATI 1 [facility] ON INC INC SERVICE PER HOUR ECHO 29375 SOFI FARAH TTHRC R-T 1 [facility] 2D INC INC W/WOM-MOD E COMPL SPEC&COLR D NONINVASI 26822 SOFI FARAH VE 1 [facility] EAR/PULSE INC [place] [address] SOFI FARAH TROPONIN 1 [facility] QUANTITAT INC INC NATASHA ECG 76462 SOFI PIZANOSON ROUTINE 1 [facility] W/LEAST P 12 LDS I&R ONLY ECG 75183 SOFI FARAH ROUTINE 1 [facility] ECG INC INC W/LEAST 12 LDS TRCG ONLY W/O I&R CREATINE 28566 SOFI FARAH KINASE 1 [facility] TOTAL INC INC CREATINE 33132 SOFI FARAH KINASE MB 1 [facility] FRACTION INC INC ONLY COLLECTIO 00853 SOFI FARAH N VENOUS 1 [facility] [place] [address] SOFI FARAH THYROID 1 [facility] STIMULATI INC INC NG HORMONE TSH CREATINE 94101 SOFI FARAH KINASE MB 1 [facility] FRACTION INC INC ONLY COMPREHEN 25518 SOFI FARAH SIVE 1 [facility] METABOLIC INC INC PANEL AMB A0427 JARAD ABRAHAM SERVICE 1 AMBULANCE AMBULANCE ALS SERVICE SERVICE EMERGENCY TRANSPORT LEVEL 1 CREATINE 60149 SOFI FARAH KINASE 1 [facility] TOTAL INC INC ECG 48726 SOFI FARAH ROUTINE 1 [facility] ECG INC INC W/LEAST 12 LDS TRCG ONLY W/O I&R GROUND A0425 JARAD ABRAHAM MILEAGE 1 AMBULANCE AMBULANCE PER SERVICE SERVICE STATUTE MILE ECG 42263 MARCIO BEAULIEU ROUTINE 1 EMERGENCY JAM ECG SERVICES W/LEAST 12 LDS I&[place] [address] SOIF FARAH TROPONIN 1 [facility] QUANTITAT INC INC NATASHA RHYTHM 21372 SOFI FARAH ECG 1-3 1 [facility] LEADS INC INC TRACING ONLY W/O I&R BLOOD 21971 SOFI FARHA COUNT 1 [facility] COMPLETE INC INC AUTO&AUTO DIFRNTL [facility] G0378 SOFI FARAH OBSERVATI 1 [facility] ON INC INC SERVICE PER HOUR RADIOLOGI 58528 [place] FLYNN C 1 MEDICAL TERESSA EXAMINATI IMAGING ON CHEST ASS SINGLE VIEW FRONTAL BASIC 38615 COMBINED COMBINED METABOLIC 1 PHYSICIAN PHYSICIAN PANEL S LA S LA CALCIUM TOTAL HEPATIC 82054 COMBINED COMBINED FUNCTION 1 PHYSICIAN PHYSICIAN PANEL S LA S LA LIPID 07178 FAMILY MEGHANA PANEL 1 CARE R H ASSOCIATE S COLLECTIO 05291 FAMILY MEGHANA N VENOUS 1 CARE R H BLOOD ASSOCIATE VENIPUNCT S URE EXC B9 88844 SOFI FARAH LES MRGN 1 [facility] XCP SK TG INC INC F/E/E/N/L /M 0.6-1.0CM REPAIR 72112 JOSEFINA ROCHA INTERMEDI 1 JAM JAM ATE F/E/E/N/L &/MUC 2.5 CM/< EXC B9 90306 JOSEFINA MAYAEWS LES MRGN 1 JAM JAM XCP SK TG F/E/E/N/L /M 1.1-[place] [address] PATHOLOGY PATHOLOGY SURG 1 & & PATHOLOGY CYTOLOGY CYTOLOGY LAB LAB GROSS&HUSAM ROSCOPIC EXAM OPHTHALMO 27610 JOSEFINA ROCHA SCPY 1 DEONTE JAM EXTENDED RETINAL DRAWING I&R 1ST COLLECTIO 90565 FAMILY MEGHANA N VENOUS 1 CARE R H BLOOD ASSOCIATE VENIPUNCT S URE LIPID 21658 FAMILY MEGHANA PANEL 1 CARE R H ASSOCIATE S HEPATIC 98179 COMBINED COMBINED FUNCTION 1 PHYSICIAN PHYSICIAN PANEL S LA S LA BASIC 80196 COMBINED COMBINED METABOLIC 1 PHYSICIAN PHYSICIAN PANEL S LA S LA CALCIUM TOTAL BLOOD 50148 FAMILY FAMILY COUNT 1 CARE CARE COMPLETE ASSOCIATE ASSOCIATE AUTO&AUTO S S DIFRNTL WBC IAADIADOO 85079 FAMILY MEGHANA 1 CARE R H INFLUENZA ASSOCIATE S DUPLEX 74435 SOFI FARAH SCAN 1 [facility] EXTRACRAN INC [place] [address] SOFI FARAH UREA 1 [facility] NITROGEN INC INC QUANTITAT NATASHA COLLECTIO 63520 SOFI FARAH N VENOUS 1 [facility] [place] [address] SOFI FARAH HEAD/BRAI 1 [facility] N W/O & INC INC W/CONTRAS T MATERIAL 3D 33370 SOFI FARAH RENDERING 1 [facility] W/INTERP INC INC & POSTPROCE SS SUPERVISI ON CREATININ 62218 SOFI FARAH E BLOOD 1 [facility] INC INC XTRNL ECG 46512 SOFI FARAH & 48 HR 1 [facility] RECORDING INC INC EXTERNAL 95901 SOFI FARAH ECG 1 [facility] SCANNING INC INC ANALYSIS REPORT XTRNL ECG 78235 SOFI MAN 1 [facility] S RHYTHM P W/I&R UP TO 48 HRS RADIOLOGI 80047 SOFI FARAH C EXAM 1 [facility] CHEST 2 INC INC VIEWS FRONTAL&L ATERAL BLOOD 03677 FAMILY FAMILY COUNT 1 CARE CARE COMPLETE ASSOCIATE ASSOCIATE AUTO&AUTO S S DIFRNTL WBC LIPID 64134 FAMILY MEGHANA PANEL 1 CARE R H ASSOCIATE S COLLECTIO 30618 FAMILY MEGHANA N VENOUS 1 CARE R H BLOOD ASSOCIATE VENIPUNCT S URE COMPREHEN 04836 COMBINED COMBINED SIVE 1 PHYSICIAN PHYSICIAN METABOLIC S LA S LA PANEL BLOOD 24004 FAMILY FAMILY COUNT 1 CARE CARE COMPLETE ASSOCIATE ASSOCIATE AUTO&AUTO S S DIFRNTL WBC ADMINISTR G0008 FAMILY MEGHANA ATION OF 0 CARE R H INFLUENZA ASSOCIATE VIRUS S VACCINE IIV3 15561 FAMILY MEGHANA VACCINE 0 CARE R H SPLIT ASSOCIATE VIRUS 0.5 S ML DOSAGE IM USE HEPATIC 83767 SOFI FARAH FUNCTION 0 [facility] PANEL INC INC LIPID 49961 SOFI MEYERON PANEL 0 [facility] INC INC PROSTATE G0103 SOFI FARAH CANCER 0 [facility] SCREENING INC INC ; PSA TEST BASIC 12286 SOFI FARAH METABOLIC 0 [facility] PANEL INC INC CALCIUM TOTAL COLLECTIO 14687 SOFI FARAH N VENOUS 0 [facility] BLOOD INC INC VENIPUNCT URE ADMINISTR G0008 FAMILY MEGHANA, ATION OF 9 CARE R SAGAR INFLUENZA ASSOCIATE VIRUS S VACCINE IIV3 73051 FAMILY MEGHANA, VACCINE 9 CARE R SAGAR SPLIT ASSOCIATE VIRUS 0.5 S ML DOSAGE IM USE BLOOD 30462 FAMILY MULBERRY, COUNT 9 CARE MATI T COMPLETE ASSOCIATE AUTO&AUTO S DIFRNTL WBC HEPATIC 23342 SOFI FARAH FUNCTION 9 [facility] PANEL INC INC LIPID 47308 SOFI FARAH PANEL 9 [facility] INC INC COLLECTIO 33246 SOFI FARAH N VENOUS 9 [facility] BLOOD INC INC VENIPUNCT URE BASIC 44527 SOFI FARAH METABOLIC 9 [facility] PANEL INC INC CALCIUM TOTAL BASIC 65367 SOFI FARAH METABOLIC 9 [facility] PANEL INC INC CALCIUM TOTAL COLLECTIO 06521 SOFI FARAH N VENOUS 9 [facility] BLOOD INC INC VENIPUNCT URE HEPATIC 10594 SOFI FARAH FUNCTION 9 [facility] PANEL INC INC LIPID 47533 SOFI FARAH PANEL 9 [facility] INC INC OPHTH 27776 JORGE PATEL, MEDICAL 8 ENRRIQUE Draper XM&EVAL COMPRHNSV ESTAB PT 1/> RADEX HIP 79795 SOFI FARAH 8 [facility] UNILATERA INC INC L COMPLETE MINIMUM 2 VIEWS RADIOLOGI 04733 SOFI FARAH C 8 [facility] EXAMINATI INC INC ON PELVIS 1/2 VIEWS LIPID 08856 SOFI FARAH PANEL 8 [facility] INC INC PROSTATE G0103 SOFI FARAH CANCER 8 [facility] SCREENING INC INC ; PSA TEST RADEX 71022 SOFI FARAH SPINE 8 [facility] LUMBOSACR INC INC AL MINIMUM 4 VIEWS COMPREHEN 13892 SOFI FARAH SIVE 8 [facility] METABOLIC INC INC PANEL COLLECTIO 40078 SOFI FARAH N VENOUS 8 [facility] [place] [address] ASHOK DECKER, ABDOMINAL 8 MEDICAL JENNY Azul REAL IMAGING TIME ASSOCIATE W/IMAGE S LIMITED Encounters Encounter Start End Date Code Location Performer Type Date [facility] T VISIT MODERATE SEVERITY HOSPITAL SOFI - 6 6 [facility] T HOSPITAL SOFI - 6 6 [facility] T EMERGENCY 68347 [facility] T VISIT MODERATE [facility]VERITY HOSPITAL SOFI - 5 5 [facility] OUTPATIEN [facility] T EMERGENCY 85364 SOFI WALLACEEY 5 5 [facility] T VISIT P MODERATE SEVERITY Inpatient IMP Sofi Aranat (IN) 4 11:55 4 11:55 [facility] Inpatient IMP Sofi Aranat ([place]) 3 10:34 4 11:00 [facility] Inpatient IMP Sofi Aranat (IN) 3 09:31 3 10:33 [facility] Emergency MONIQUE Huang MD (ER) 3 09:23 3 14:25 [facility] SOFI - 3 3 [facility] OUTPATIEN INC T Emergency MONIQUE Huang MD (ER) 3 11:59 3 15:24 [facility] OFFICE 13793 MEGHANA MEGHANA OUTPATIEN 3 3 R H R H T VISIT 15 MINUTES OFFICE 84661 FAMILY MEGHANA OUTPATIEN 2 2 CARE R H T VISIT ASSOCIATE 25 S MINUTES OFFICE 08956 FALLUJI FALLUJI OUTPATIEN 2 2 [facility] T VISIT 25 MINUTES HOSPITAL SOFI - 1 1 [facility] INC T EMERGENCY 12735 SOFI 1 1 [facility] DEPARTMEN INC T VISIT HIGH/URGE NT SEVERITY HOSPITAL SOFI - 1 1 [facility] OUTPATIEN INC T EMERGENCY 23005 MARCIO BEAULIEU DEPT 1 1 EMERGENCY JAM VISIT SERVICES HIGH SEVERITY& THREAT FUN OFFICE 13026 FAMILY MEGHANA OUTPATIEN 1 1 CARE R H T VISIT ASSOCIATE 25 S MINUTES OFFICE 66766 JOSEFINA ROCHA OUTPATIEN 1 1 JAM JAM T VISIT 25 MINUTES HOSPITAL SOIF - 1 1 [facility] OUTPATIEN INC T OFFICE 67680 JOSEFINA ROCHA OUTPATIEN 1 1 JAM JAM T NEW 60 MINUTES OFFICE 25320 FAMILY MEGHANA OUTPATIEN 1 1 CARE R H T VISIT ASSOCIATE 25 S MINUTES OFFICE 84336 FAMILY MEGHANA OUTPATIEN 1 1 CARE R H T VISIT ASSOCIATE 15 S MINUTES OFFICE 60948 FAMILY MEGHANA OUTPATIEN 1 1 CARE R H T VISIT ASSOCIATE 15 S MINUTES OFFICE 64247 FAMILY MEGHANA OUTPATIEN 1 1 CARE R H T VISIT ASSOCIATE 15 S MINUTES HOSPITAL SOFI - 1 1 [facility] T HOSPITAL SOFI - 1 1 [facility] OUTPATIEN INC T OFFICE 64272 FAMILY MEGHANA OUTPATIEN 1 1 CARE R H T VISIT ASSOCIATE 25 S MINUTES OFFICE 45286 FAMILY MULBERRY OUTPATIEN 1 1 CARE SRINIVAS T VISIT ASSOCIATE 15 S MINUTES OFFICE 62036 FAMILY MEGHANA OUTPATIEN 1 1 CARE R H T VISIT ASSOCIATE 15 S MINUTES OFFICE 35449 FAMILY MEGHANA OUTPATIEN 0 0 CARE R H T VISIT ASSOCIATE 15 S MINUTES OFFICE 74196 FAMILY MEGHANA OUTPATIEN 0 0 CARE R H T VISIT ASSOCIATE 15 S MINUTES HOSPITAL SOFI - 0 0 [facility] OUTPATIEN INC T OFFICE 72417 FAMILY MEGHANA, OUTPATIEN 0 0 CARE R SAGAR T VISIT ASSOCIATE 25 S MINUTES OFFICE 78859 FAMILY MULBERRY, OUTPATIEN 9 9 CARE MATI T T VISIT ASSOCIATE 15 S MINUTES OFFICE 97823 FAMILY MEGHANA, OUTPATIEN 9 9 CARE R SAGAR T VISIT ASSOCIATE 15 S MINUTES HOSPITAL SOFI - 9 9 [facility] OUT[facility] INC T OFFICE 34430 FAMILY MEGHANA, OUTPATIEN 9 9 CARE R SAGAR T VISIT ASSOCIATE 15 S MINUTES HOSPITAL SOFI - 9 9 [facility] OUTPATIEN INC T OFFICE 42018 FAMILY MEGHANA, OUTPATIEN 8 8 CARE R SAGAR T VISIT ASSOCIATE 15 S MINUTES HOSPITAL SOFI - 8 8 [facility] OUTPATIEN INC T OFFICE 09347 FAMILY MEGHANA, OUTPATIEN 8 8 CARE R SAGAR T VISIT ASSOCIATE 25 S MINUTES OFFICE 65043 FAMILY MEGHANA, OUTPATIEN 8 8 CARE R SAGAR T VISIT ASSOCIATE 25 S MINUTES OFFICE 90439 FAMILY FAMILY OUTPATIEN 8 8 CARE CARE T VISIT ASSOCIATE ASSOCIATE 15 S S MINUTES OFFICE 66462 FAMILY FAMILY OUTPATIEN 8 8 CARE CARE T VISIT ASSOCIATE ASSOCIATE 15 S S MINUTES OFFICE 99121 JORGE PATEL, OUTPATIEN 8 8 ENRRIQUE A ENRRIQUE Draper T VISIT 10 MINUTES
--- OUTSIDE RECORDS SUMMARY | 2016-12-14 08:57 | External Medical Summary Rpt ---
Author Author , NELIDA KRAUSE Address Unknown Phone [email or web address] Providers Care Tool Operator Name Role Phone MAGDA DANIELLE, MAGDA Unavailable Unavailable [facility] Unavailable Unavailable SERVICE, [facility] Unavailable Unavailable SERVICE, [facility] Unavailable Unavailable [place], [facility] Unavailable Unavailable [place], [facility] [place] FLYNN TERESSA, Unavailable Unavailable FLYNN TERESSA FLYNN TERESSA, Unavailable Unavailable FLYNN TERESSA [facility] [place], [facility] [place] FALLUJI LUKAS, FALLUJI Unavailable Unavailable [facility] FALLUJI LUKAS, FALLUJI Unavailable Unavailable [facility] Unavailable Unavailable [facility], [facility] Unavailable Unavailable ASSOCIATES, [facility] Unavailable Unavailable TRANSPORTATION SER, [facility] FOSTER JAM, FOSTER Unavailable Unavailable JAM FANY HUSAM, FANY Unavailable Unavailable HUSAM [facility] Unavailable Unavailable INC, [facility] Unavailable Unavailable HOSPITAL P, [facility] P PATELENRRIQUE GOODWIN A, Unavailable Unavailable PATELENRRIQUE GOODWIN A [facility] Unavailable [facility], [facility] Joellen Huang MD, Unavailable Unavailable Joellen Huang MD [facility] Unavailable Unavailable SERVICES, [facility] JOSEFINA CLEMONS, Unavailable Unavailable JOSEFINA [...] [facility] Unavailable Unavailable EQUIPME, [facility] Unavailable Unavailable CLINIC, [facility] Purpose Continuity of Care Document - 08-08-2007 through 2016 Problems Code Diagnosis DOS Provider Status I10 ESSENTIAL 09-12-2015 [facility] HYPERTENSIO INC N K219 GASTRO-ESOP 09-12-2015 [facility] H REFLUX [facility] DISEASE INC WITHOUT ESOPHAGITIS [id number] ABRASION OF 09-12-2015 [facility] RIGHT [facility] WRIST INC INITIAL ENCOUNTER H8303 LABYRINTHIT 09-08-2015 [facility] P R531 WEAKNESS 09-08-2015 [facility] AM[facility]ULANCE SERVICE R55 SYNCOPE AND 09-08-2015 [facility] COLLAPSE AMBULANCE SERVICE [id number] OTHER LONG 09-08-2015 [facility] P DRUG THERAPY 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 [place] [facility]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 Q05489 CELLULITIS 09-03-2015 [facility] MEDICAL EQUIPME 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 R69 ILLNESS 09-03-2015 [facility] UNSPECIFIED TRANSPORTAT ION SER 64486 ASTHMA, 06-14-2014 [place] UNSPECIFIED [facility] P UNSPECIFIED STATUS 7862 COUGH 06-14-2014 [facility] 041.19 041.19 06-15-2013 [employer] BACTERIAL [facility] INFECTION Hospital DUE TO OTHER STAPHYLOCOC CUS 041.7 041.7 06-15-2013 [employer] PSEUDOMONAS [facility] INFECT NOS Hospital 272.4 272.4 06-15-2013 [employer] HYPERLIPIDE [facility] NEC/NOS Hospital 401.9 401.9 06-15-2013 [employer] HYPERTENSIO [facility] N NOS Hospital 440.23 440.23 06-15-2013 [employer] 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[facility] FOND DU LAC Hospital ARTER EXTREMITIES W ULCERATION 530.81 530.81 06-15-2013 [employer] ESOPHAGEAL [facility] REFLUX Hospital 682.7 682.7 06-15-2013 [employer] CELLULITIS [facility] OF FOOT Hospital 707.14 707.14 06-15-2013 [employer] ULCER OF [facility] HEEL AND Hospital MIDFOOT 443.9 443.9 05-17-2013 [employer] PERIPH [facility] VASCULAR Hospital DIS NOS 564.00 564.00 05-17-2013 Sofi UNSPEC [facility] CONSTIPATIO Hospital N 682.9 682.9 05-17-2013 Sofi CELLULITIS [facility] 692.9 692.9 05-17-2013 Sofi DERMATITIS [facility] 755.50 755.50 05-17-2013 Sofi UPPER LIMB [facility] ANOMALY [facility] 755.67 755.67 05-17-2013 Sofi ANOMALIES [facility] OF FOOT [facility] V14.8 V14.8 05-17-2013 Sofi HX-DRUG [facility] ALLERGY [facility] V58.62 V58.62 05-17-[address] [facility] LONG-TERM(C URRENT) USE OF ANTIBIOTICS (AFTERCARE) V58.69 V58.69 OTH 05-17-2013 Sofi MED,LT,[facility] ENT USE Hospital 6827 CELLULITIS 05-07-2013 FLYNN AND ABSCESS TERESSA OF FOOT EXCEPT TOES 4019 UNSPECIFIED 04-20-2013 [facility] HYPERTENSIO INC N 6829 CELLULITIS 04-20-2013 [facility] AND ABSCESS AMBULANCE OF SERVICE UNSPECIFIED SITE 31526 PAIN IN 04-20-2013 [facility] JOINT, AMBULANCE ANKLE AND SERVICE FOOT 44050 SWELLING OF 04-20-2013 FLYNN LIMB TERESSA 276.1 276.1 12-21-2012 Sofi HYPOSMOLALI [facility] 276.51 276.51 12-21-[address] [facility] 575.8 575.8 DIS 12-21-2012 Sofi OF [facility] GALLBLADDER [facility] NEC 787.03 787.03 12-21-2012 Sofi VOMITING [facility] 05665 ESOPHAGEAL 10-03-2012 MEG[place]NA R REFLUX H V7644 SPECIAL 10-03-2012 [place] R SCREENING H MALIGNANT NEOPLASM OF PROSTATE 2724 OTHER AND 09-30-2011 [facility] UNSPECIFIED ASSOCIATES HYPERLIPIDE FREDDIE 7802 SYNCOPE AND 05-17-2011 FALLUJI LUKAS COLLAPSE 4011 ESSENTIAL 04-12-2011 FALLUJI LUKAS HYPERTENSIO N, BENIGN 25852 ATRIAL 03-04-2011 [place] FIBRILLATIO [facility] P 7851 PALPITATION 03-04-2011 [facility] 4293 CARDIOMEGAL 03-03-2011 [facility] 436 ACUTE BUT 03-03-2011 [facility] ILL-DEFINED AMBULANCE SERVICE CEREBROVASC ULAR DISEASE 7801 HALLUCINATI 03-03-2011 [facility]NS [facility] INC 94161 OTHER 03-03-2011 [facility] FATIGUE SERVICES V5869 LONG-TERM 03-03-2011 [facility] (CURRENT) [facility] USE OF INC OTHER MEDICATIONS 4779 ALLERGIC 01-15-2011 [facility] RHINITIS [facility] CAUSE UNSPECIFIED 7904 NONSPEC 01-15-2011 [facility] ELEVATION ASSOCIATES OF LEVELS OF TRANSAMINAS E/LDH 7948 NONSPECIFIC 01-15-2011 [facility] ABNORMAL PHYSICIANS RESULTS LA LIVR FUNCTION STUDY 81672 ULCERATIVE 01-06-2011 [facility] BLEPHARITIS JAM 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 2382 NEOPLASM OF 12-30-2010 [facility]CERTAIN [facility] BEHAVIOR OF INC SKIN 3689 UNSPECIFIED 12-30-2010 JOSEFINA VISUAL JAM DISTURBANCE 45614 OTHER 12-30-2010 PATHOLOGY & SEBORRHEIC CYTOLOGY KERATOSIS LAB 96962 NONEXUDATIV 12-02-2010 [facility] E SENILE JAM MACULAR DEGENERATIO N RETINA 7840 HEADACHE 10-16-2010 [facility] 71065 POST-TRAUMA 08-10-2010 [facility] TIC [facility] HEADACHE UNSPECIFIED 460 ACUTE 07-21-2010 [facility] NASOPHARYNG [facility] ITIS 2761 HYPOSMOLALI 07-17-2010 [facility] TY AND/OR ASSOCIATES HYPONATREMI A 920 CONTUSION 07-13-2010 [place] [facility] ASS NECK EXCEPT EYE V0481 NEED 04-03-2010 [facility] PROPHYLACTI ASSOCIATES C VACCINATION &INOCULATIO N FLU 9895 TOXIC 01-09-2009 [facility] EFFECT OF ASSOCIATES VENOM 7242 LUMBAGO 08-22-2008 [facility] 07961 CORNEAL 02-09-2008 PATEL, [place] A [address] PAIN IN 01-08-2008 [place] [facility] ASSOCIATES [...] er -A 2 CE Ac TA ti NV ve NO PH EN 5- 32 5 CI 60 01 3 No LO 50 -2 ST 52 8- Lo AZ 52 20 ng OL 20 14 er 1 10 Ac 0 ti MG ve TA BL ET ME 51 01 3 No TO 07 -2 MD 90 8- Lo OL 25 20 ng [...] MG Ac ti TA ve BL ET NV 11 12 6 No RA 52 -2 [...] er -A 2 CE Ac TA ti NV ve NO PH EN 5- 32 5 AP 42 12 0 No LI 02 -2 SO 30 6- Lo L 10 20 ng 5T 40 13 er 1 UN Ac IT ti S/ ve 0. 1 ML AL ME 51 12 7 No TO 07 -2 MD 90 6- Lo OL 25 20 ng [...] er -A 2 CE Ac TA ti NV ve NO PH EN 5- 32 5 [...] er -A 2 CE Ac TA ti NV ve NO PH EN 5- 32 5 [...] 51 12 3 No TO 07 -2 MD 90 3- Lo OL 25 20 ng [...] Procedure DOS Code Location Performer Comment ECG 64589 SOFI MAN ROUTINE 6 [facility] W/LEAST P 12 LDS I&R ONLY GROUND A0425 [facility] MILEAGE 6 AMBULANCE AMBULANCE PER SERVICE SERVICE STATUTE MILE ECG 84052 [facility] FARAH ROUTINE 6 [facility] ECG INC INC W/LEAST 12 LDS TRCG ONLY W/O I&R CREATINE 04464 [facility] KINASE 6 [facility] TOTAL INC INC DRUG TST G0477 [facility] PRESUMP;C 6 [facility] PBL BEING INC INC READ DC OPT OBV ONLY AMB A0427 [facility] SERVICE 6 AMBULANCE AMBULANCE ALS SERVICE SERVICE EMERGENCY TRANSPORT LEVEL 1 BLOOD 16445 [facility] F[facility] COUNT 6 [facility] COMPLETE INC INC AUTO&[place] [address] [facility] TROPONIN 6 [facility] QUANTITAT INC INC NATASHA CREATINE 22704 [facility] KINASE MB 6 [facility] FRACTION INC INC ONLY COMPREHEN 81337 [facility] SIVE 6 [facility] METABOLIC INC INC PANEL NONEMERG A0120 FEDERATED FEDERATED TRNSPRT: 6 MINI-BUS TRANSPORT TRANSPORT MTN ATION SER ATION SER AREA/OTH SYS WALKER E0143 [facility] FOLDING 6 HOME HOME WHEELED MEDICAL MEDICAL ADJUSTABL EQUIPME EQUIPME E/FIXED HEIGHT SEAT E0156 [facility] GALLAGHER ATTACHMEN 6 HOME HOME T WALKER MEDICAL MEDICAL EQUIPME EQUIPME RADIOLOGI 82344 [facility] Griggs EXAM 5 [facility] CHEST 2 INC INC VIEWS FRONTAL&L ATERAL RADEX 74447 FLYNN FLYNN FOOT 3 TERESSA TERESSA COMPLETE MINIMUM 3 VIEWS GROUND A0425 [facility] MILEAGE 3 AMBULANCE AMBULANCE PER SERVICE SERVICE STATUTE MILE AMBULANCE A0429 [facility] SERVICE 3 AMBULANCE AMBULANCE [place] [address] SO[facility] INFUSION 3 [facility] THERAPY/P INC INC ROPHYLAXI S /DX 1ST TO 1 [place] [address] [facility] INFUSION 3 [facility] THERAPY INC INC PROPHYLAX IS/DX EA HOUR RADEX 35022 [facility] FOOT 3 [facility] COMPLETE INC INC MINIMUM 3 VIEWS XTRNL ECG 74231 SO[facility] FARAH & 48 HR 1 [facility] RECORDING INC INC HOSPITAL G0378 [facility] F[facility] OBSERVATI 1 [facility] ON INC INC SERVICE PER HOUR HOSPITAL G0378 [facility] F[facility] OBSERVATI 1 [facility] ON INC INC SERVICE PER HOUR ECHO 35356 SO[facility] F[facility] TTHRC R-T 1 [facility] 2D INC INC W/WOM-MOD E COMPL SPEC&COLR D NONINVASI 14884 [facility] VE 1 [facility] EAR/PULSE INC [place] [address] SO[facility] TROPONIN 1 [facility] QUANTITAT INC INC NATASHA ECG 31055 SOFI PIZANOSON ROUTINE 1 [facility] W/LEAST P 12 LDS I&R ONLY ECG 90985 SO[facility] FARAH ROUTINE 1 [facility] ECG INC INC W/LEAST 12 LDS TRCG ONLY W/O I&R CREATINE 26165 [facility] KINASE 1 [facility] TOTAL INC INC CREATINE 47860 SOFI FARAH KINASE MB 1 [facility] FRACTION INC INC ONLY COLLECTIO 09779 SO[facility] F[facility] N VENOUS 1 [facility] [place] [address] SO[facility] THYROID 1 [facility] STIMULATI INC INC NG HORMONE TSH CREATINE 41869 SOFI FARAH KINASE MB 1 [facility] FRACTION INC INC ONLY COMPREHEN 55121 [facility] F[facility] SIVE 1 [facility] METABOLIC INC INC PANEL AMB A0427 JARAD ABRAHAM SERVICE 1 AMBULANCE AMBULANCE ALS SERVICE SERVICE EMERGENCY TRANSPORT LEVEL 1 CREATINE 33915 [facility] F[facility]AH KINASE 1 [facility] TOTAL INC INC ECG 31451 [facility] F[facility]AH ROUTINE 1 [facility] ECG INC INC W/LEAST 12 LDS TRCG ONLY W/O I&R GROUND A0425 JARAD ABRAHAM MILEAGE 1 AMBULANCE AMBULANCE PER SERVICE SERVICE STATUTE MILE ECG 33334 MARCIO BEAULIEU ROUTINE 1 EMERGENCY JAM ECG SERVICES W/LEAST 12 LDS I&[place] [address] SOFI FARAH TROPONIN 1 [facility] QUANTITAT INC INC NATASHA RHYTHM 75055 SOFI FARAH ECG 1-3 1 [facility] LEADS INC INC TRACING ONLY W/O I&R BLOOD 63947 SOFI FARAH COUNT 1 [facility] COMPLETE INC INC AUTO&AUTO DIFRNTL WBC HOSPITAL G0378 SO[facility] F[facility] OBSERVATI 1 [facility] ON INC INC SERVICE PER HOUR RADIOLOGI 24541 [place] FLYNN C 1 MEDICAL TERESSA EXAMINATI IMAGING ON CHEST ASS SINGLE VIEW FRONTAL BASIC 02487 COMBINED COMBINED METABOLIC 1 PHYSICIAN PHYSICIAN PANEL S LA S LA CALCIUM TOTAL HEPATIC 51302 COMBINED COMBINED FUNCTION 1 PHYSICIAN PHYSICIAN PANEL S LA S LA LIPID 74422 FAMILY MEGHANA PANEL 1 CARE R H ASSOCIATE S COLLECTIO 68932 FAMILY MEGHANA N VENOUS 1 CARE R H BLOOD ASSOCIATE VENIPUNCT S URE EXC B9 64998 SOFI F[facility]AH LES MRGN 1 [facility] XCP SK TG INC INC F/E/E/N/L /M 0.6-1.0CM REPAIR 52964 JOSEFINA ROCHA INTERMEDI 1 JAM JAM ATE F/E/E/N/L &/MUC 2.5 CM/< EXC B9 83846 JOSEFINA MAYAEWS LES MRGN 1 JAM JAM XCP SK TG F/E/E/N/L /M 1.[place] [address] PATHOLOGY PATHOLOGY SURG 1 & & PATHOLOGY CYTOLOGY CYTOLOGY LAB LAB GROSS&HUSAM ROSCOPIC EXAM OPHTHALMO 05666 JOSEFINA ROCHA SCPY 1 DEONTE JAM EXTENDED RETINAL DRAWING I&R 1ST COLLECTIO 11759 FAMILY MEGHANA N VENOUS 1 CARE R H BLOOD ASSOCIATE VENIPUNCT S URE LIPID 12216 FAMILY MEGHANA PANEL 1 CARE R H ASSOCIATE S HEPATIC 83272 COMBINED COMBINED FUNCTION 1 PHYSICIAN PHYSICIAN PANEL S LA S LA BASIC 55810 COMBINED COMBINED METABOLIC 1 PHYSICIAN PHYSICIAN PANEL S LA S LA CALCIUM TOTAL BLOOD 55394 FAMILY FAMILY COUNT 1 CARE CARE COMPLETE ASSOCIATE ASSOCIATE AUTO&AUTO S S DIFRNTL WBC IAADIADOO 34782 FAMILY MEGHANA 1 CARE R H INFLUENZA ASSOCIATE S DUPLEX 78862 SOFI F[facility] SCAN 1 [facility] EXTRACRAN INC [place] [address] SOFI F[facility]AH UREA 1 [facility] NITROGEN INC INC QUANTITAT NATASHA COLLECTIO 77760 [facility] F[facility] N VENOUS 1 [facility] [place] [address] [facility] HEAD/BRAI 1 [facility] N W/O & INC INC W/CONTRAS T MATERIAL 3D 76149 [facility] RENDERING 1 [facility] W/INTERP INC INC & POSTPROCE SS SUPERVISI ON CREATININ 28707 SO[facility] F[facility]AH E BLOOD 1 [facility] INC INC XTRNL ECG 81005 SOFI FARAH & 48 HR 1 [facility] RECORDING INC INC EXTERNAL 53609 [facility] FARAH ECG 1 [facility] SCANNING INC INC ANALYSIS REPORT XTRNL ECG 05491 SOFI MAN 1 [facility] S RHYTHM P W/I&R UP TO 48 HRS RADIOLOGI 03281 SOFI FARAH C EXAM 1 [facility] CHEST 2 INC INC VIEWS FRONTAL&L ATERAL BLOOD 58890 FAMILY FAMILY COUNT 1 CARE CARE COMPLETE ASSOCIATE ASSOCIATE AUTO&AUTO S S DIFRNTL WBC LIPID 52151 FAMILY MEGHANA PANEL 1 CARE R H ASSOCIATE S COLLECTIO 85029 FAMILY MEGHANA N VENOUS 1 CARE R H BLOOD ASSOCIATE VENIPUNCT S URE COMPREHEN 28620 COMBINED COMBINED SIVE 1 PHYSICIAN PHYSICIAN METABOLIC S LA S LA PANEL BLOOD 95141 FAMILY FAMILY COUNT 1 CARE CARE COMPLETE ASSOCIATE ASSOCIATE AUTO&AUTO S S DIFRNTL WBC ADMINISTR G0008 FAMILY MEGHANA ATION OF 0 CARE R H INFLUENZA ASSOCIATE VIRUS S VACCINE IIV3 57231 FAMILY MEG[place] VACCINE 0 CARE R H SPLIT ASSOCIATE VIRUS 0.5 S ML DOSAGE IM USE HEPATIC 80215 [facility] FUNCTION 0 [facility] PANEL INC INC LIPID 49953 SOFI MEYERON PANEL 0 [facility] INC INC PROSTATE G0103 SOFI F[facility]AH CANCER 0 [facility] SCREENING INC INC ; PSA TEST BASIC 68554 [facility] F[facility] METABOLIC 0 [facility] PANEL INC INC CALCIUM TOTAL COLLECTIO 71386 SOFI FARAH N VENOUS 0 [facility] BLOOD INC INC VENIPUNCT URE ADMINISTR G0008 FAMILY MEGHANA, ATION OF 9 CARE R SAGAR INFLUENZA ASSOCIATE VIRUS S VACCINE IIV3 21476 FAMILY MEGHANA, VACCINE 9 CARE R SAGAR SPLIT ASSOCIATE VIRUS 0.5 S ML DOSAGE IM USE BLOOD 71577 FAMILY MULBERRY, COUNT 9 CARE MATI T COMPLETE ASSOCIATE AUTO&AUTO S DIFRNTL WBC HEPATIC 81157 SOFI F[facility]AH FUNCTION 9 [facility] PANEL INC INC LIPID 79000 [facility] F[facility]AH PANEL 9 [facility] INC INC COLLECTIO 22608 SOFI FARAH N VENOUS 9 [facility] BLOOD INC INC VENIPUNCT URE BASIC 79168 SO[facility] F[facility] METABOLIC 9 [facility] PANEL INC INC CALCIUM TOTAL BASIC 51123 SO[facility] F[facility]AH METABOLIC 9 [facility] PANEL INC INC CALCIUM TOTAL COLLECTIO 97831 SOFI F[facility]AH N VENOUS 9 [facility] BLOOD INC INC VENIPUNCT URE HEPATIC 94619 SOFI F[facility]AH FUNCTION 9 [facility] PANEL INC INC LIPID 67666 [facility] F[facility]AH PANEL 9 [facility] INC INC OPHTH 29976 JORGE PATEL, MEDICAL 8 ENRRIQUE Draper XM&EVAL COMPRHNSV ESTAB PT 1/> RADEX HIP 10973 [facility] F[facility]AH 8 [facility] UNILATERA INC INC L COMPLETE MINIMUM 2 VIEWS RADIOLOGI 09721 SOFI FARAH C 8 [facility] EXAMINATI INC INC ON PELVIS 1/2 VIEWS LIPID 92269 SOFI F[facility]AH PANEL 8 [facility] INC INC PROSTATE G0103 SO[facility] CANCER 8 [facility] SCREENING INC INC ; PSA TEST RADEX 28936 SOFI F[facility] SPINE 8 [facility] LUMBOSACR INC INC AL MINIMUM 4 VIEWS COMPREHEN 85596 SOFI F[facility]AH SIVE 8 [facility] METABOLIC INC INC PANEL COLLECTIO 38156 SOFI FARAH N VENOUS 8 [facility] [address] ASHOK DECKER, ABDOMINAL 8 MEDICAL JENNY Azul REAL IMAGING TIME ASSOCIATE W/IMAGE S LIMITED Encounters Encounter Start End Date Code Location Performer Type Date EMERGENCY 97692 [facility] MODERATE SEVERITY HOSPITAL SOFI - 6 6 [facility] HOSPITAL SOFI - 6 6 [facility] T EMERGENCY 78314 [facility] VISIT MODERATE SEVERITY HOSPITAL SOFI - 5 5 [facility]PATI[facility] T EMERGENCY 53155 SOFI WALLACEEY 5 5 [facility] T VISIT P MODERATE SEVERITY Inpatient IMP Sofi Aranat (IN) 4 11:55 4 11:55 [facility] Inpatient IMP Sofi Aranat (IN) 3 10:34 4 11:00 [facility] Inpatient IMP Sofi Aranat (IN) 3 09:31 3 10:33 [facility] Emergency MONIQUE Huang MD (ER) 3 09:23 3 14:25 [facility] SOFI - 3 3 [facility] OUTPATIEN INC T Emergency MONIQUE Huang MD (ER) 3 11:59 3 15:24 [facility] OFFICE 08624 MEGHANA MEGHANA OUTPATIEN 3 3 R H R H T VISIT 15 MINUTES OFFICE 14472 FAMILY MEGHANA OUTPATIEN 2 2 CARE R H T VISIT ASSOCIATE 25 S MINUTES OFFICE 45402 FALLUJI FALLUJI OUTPATIEN 2 2 LUKAS LUKAS T VISIT 25 MINUTES HOSPITAL SOFI - 1 1 [facility] OUTPATIEN INC T EMERGENCY 04445 SOFI 1 1 [facility] DEPARTMEN INC T VISIT HIGH/URGE NT SEVERITY HOSPITAL SOFI - 1 1 [facility] OUTPATIEN INC T EMERGENCY 17376 MARCIO BEAULIEU DEPT 1 1 EMERGENCY JAM VISIT SERVICES HIGH SEVERITY& THREAT FUN OFFICE 64632 FAMILY MEGHANA OUTPATIEN 1 1 CARE R H T VISIT ASSOCIATE 25 S MINUTES OFFICE 14989 JOSEFINA ROCHA OUTPATIEN 1 1 JAM JAM T VISIT 25 MINUTES HOSPITAL SOFI - 1 1 [facility] OUTPATIEN INC T OFFICE 71621 JOSEFINA ROCHA OUTPATIEN 1 1 JAM JAM T NEW 60 MINUTES OFFICE 84902 FAMILY MEGHANA OUTPATIEN 1 1 CARE R H T VISIT ASSOCIATE 25 S MINUTES OFFICE 89892 FAMILY MEGHANA OUTPATIEN 1 1 CARE R H T VISIT ASSOCIATE 15 S MINUTES OFFICE 95113 FAMILY MEGHANA OUTPATIEN 1 1 CARE R H T VISIT ASSOCIATE 15 S MINUTES OFFICE 77052 FAMILY MEGHANA OUTPATIEN 1 1 CARE R H T VISIT ASSOCIATE 15 S MINUTES HOSPITAL SOFI - 1 1 [facility] OUTPATIEN INC T HOSPITAL SOFI - 1 1 [facility] OUTPATIEN INC T OFFICE 49018 FAMILY MEGHANA OUTPATIEN 1 1 CARE R H T VISIT ASSOCIATE 25 S MINUTES OFFICE 24394 FAMILY MULBERRY OUTPATIEN 1 1 CARE SRINIVAS T VISIT ASSOCIATE 15 S MINUTES OFFICE 34721 FAMILY MEGHANA OUTPATIEN 1 1 CARE R H T VISIT ASSOCIATE 15 S MINUTES OFFICE 05700 FAMILY MEGHANA OUTPATIEN 0 0 CARE R H T VISIT ASSOCIATE 15 S MINUTES OFFICE 10815 FAMILY MEGHANA OUTPATIEN 0 0 CARE R H T VISIT ASSOCIATE 15 S MINUTES HOSPITAL SOFI - 0 0 [facility] OUTPATIEN INC T OFFICE 73523 FAMILY MEGHANA, OUTPATIEN 0 0 CARE R SAGAR T VISIT ASSOCIATE 25 S MINUTES OFFICE 76497 FAMILY MULBERRY, OUTPATIEN 9 9 CARE MATI T T VISIT ASSOCIATE 15 S MINUTES OFFICE 58241 FAMILY MEGHANA, OUTPATIEN 9 9 CARE R SAGAR T VISIT ASSOCIATE 15 S MINUTES HOSPITAL SOFI - 9 9 [facility] OUTPATIEN INC T OFFICE 49551 FAMILY MEGHANA, OUTPATIEN 9 9 CARE R SAGAR T VISIT ASSOCIATE 15 S MINUTES HOSPITAL SOFI - 9 9 [facility] OUTPATIEN INC T OFFICE 72362 FAMILY MEGHANA, OUTPATIEN 8 8 CARE R SAGAR T VISIT ASSOCIATE 15 S MINUTES HOSPITAL SOFI - 8 8 [facility] OUTPATIEN INC T OFFICE 17915 FAMILY MEGHANA, OUTPATIEN 8 8 CARE R SAGAR T VISIT ASSOCIATE 25 S MINUTES OFFICE [id number] FAMILY [facility], OUTPATIEN 8 8 CARE R SAGAR T VISIT ASSOCIATE 25 S MINUTES OFFICE [id number] FAMILY FAMILY OUTPATIEN 8 8 CARE CARE T VISIT ASSOCIATE ASSOCIATE 15 S S MINUTES OFFICE [id number] FAMILY FAMILY OUTPATIEN 8 8 CARE CARE T VISIT ASSOCIATE ASSOCIATE 15 S S MINUTES OFFICE [id number] JORGE PATEL, OUTPATIEN 8 8 ENRRIQUE A ENRRIQUE Draper T VISIT 10 MINUTES
--- OUTSIDE RECORDS SUMMARY | 2016-12-14 09:01 | External Medical Summary Rpt ---
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 Name Role Phone GERSON CANDELARIA, GERSON Unavailable Unavailable BARI MAN SHASHI, MAGDA Unavailable Unavailable SHASHI [facility] Unavailable Unavailable SERVICE, [facility] Unavailable Unavailable SERVICE, [facility] Unavailable Unavailable [place], [facility] Unavailable Unavailable [place], [facility] FLYNN TERESSA, Unavailable Unavailable FLYNN TERESSA FLYNN TERESSA, Unavailable Unavailable FLYNN TERESSA [facility] Un[facility] [place]available [place], [facility] [place] FALLUJI LUKAS, FALLUJI Unavailable Unavailable [facility]UKAS FALLUJI LUKAS, FALLUJI Unavailable Unavailable [facility] Unavailable Unavailable [facility], [facility] Unavailable Unavailable [facility]OCIATES[facility] Unavailable Unavailable TRANSPORTATION SER, [facility] FOSTER JAM, FOSTER Unavailable Unavailable JAM FANY HUSAM, FANY Unavailable Unavailable HUSAM [facility] Unavailable Unavailable INC, [facility] Unavailable Unavailable H[facility]PITAL P, [facility] ENRRIQUE PATEL, Unavailable Unavailable ENRRIQUE PATEL [facility], [facility] Unavailable Unavailable SERVICES, [facility] JOSEFINA CLEMONS, Unavailable Unavailable JOSEFINA CLEMONS, Unavailable Unavailable JOSEFINA VENEGAS, Unavailable Unavailable JENNY AARON JR, Unavailable Unavailable JENNY DECKER MULBERRY SRINIVAS, Unavailable Unavailable MULBERRY SRINIVAS MULBERRY, MATI T, Unavailable Unavailable MULBERRY, MATI T [facility], Unavailable Unavailable [facility] Liban H MEG[place]NA Rock, Unavailable Unavailable [place] Liban ROBLES, Unavailable Unavailable Liban [facility] Unavailable Unavailable LAB, [facility] Unavailable Unavailable LAB, [facility] LAB [facility] Unavailable Unavailable EQUIPME, [facility] Unavailable Unavailable EQUIPME, [facility] Unavailable Unavailable CLINIC, [facility] CLINIC Purpose Continuity of Care Document - 08-08-2007 through 2016 Problems Code Diagnosis DOS Provider Status I10 ESSENTIAL 09-12-2015 [facility] HYPERTENSI[facility] N K219 GASTRO-ESOP 09-12-2015 [facility] DISEASE INC WITHOUT ESOPHAGITIS [id number] ABRASION OF 09-12-2015 [facility] WRIST INC INITIAL ENCOUNTER H8303 LABYRINTHIT 09-08-2015 [facility] IS [facility] H[facility]PITAL P R531 WEAKNESS 09-08-2015 [facility] AMBULANCE SERVICE R55 SYNCOPE AND 09-08-2015 [facility] COLLAPSE AMBULANCE SERVICE D40017 OTHER LONG 09-08-2015 [place] [facility] P DRUG THERAPY 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 [id number] CELLULITIS 09-03-2015 [facility] OF RIGHT [facility] MEDICAL EQUIPME 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 R69 ILLNESS 09-03-2015 [facility] UNSPECIFIED TRANSPORTAT ION SER 40085 ASTHMA, 06-14-2014 [place] UNSPECIFIED [facility] P UNSPECIFIED STATUS 7862 COUGH 06-14-2014 [facility] 6827 CELLULITIS 05-07-2013 FLYNN AND ABSCESS TERESSA OF FOOT EXCEPT TOES 4019 UNSPECIFIED 04-20-2013 [facility] HYPERTENSIO INC N 6829 CELLULITIS 04-20-2013 [facility] AND ABSCESS AMBULANCE OF SERVICE UNSPECIFIED SITE 86700 PAIN IN 04-20-2013 [facility] JOINT, AMBULANCE ANKLE AND SERVICE FOOT 90912 SWELLING OF 04-20-2013 FLYNN LIMB TERESSA 52070 ESOPHAGEAL 10-03-2012 [facility] R REFLUX H V7644 SPECIAL 10-03-2012 [facility] R SCREENING H MALIGNANT NEOPLASM OF PROSTATE 2724 OTHER AND 09-30-2011 [facility] UNSPECIFIED ASSOCIATES HYPERLIPIDE FREDDIE 7802 SYNCOPE AND 05-17-2011 FALLUJI LUKAS COLLAPSE 4011 ESSENTIAL 04-12-2011 FALLUJI LUKAS HYPERTENSIO N, BENIGN 31681 ATRIAL 03-04-2011 [facility] 7851 PALPITATION 03-04-2011 [facility] 4293 CARDIOMEGAL 03-03-2011 [facility] 436 ACUTE BUT 03-03-2011 [facility] ILL-DEFINED AMBULANCE SERVICE CEREBROVASC ULAR DISEASE 7801 HALLUCINATI 03-03-2011 [facility] 39401 OTHER 03-03-2011 [facility]UE [facility] V5869 LONG-TERM 03-03-2011 [facility] (CURRENT) [facility] USE OF INC OTHER MEDICATIONS 4779 ALLERGIC 01-15-2011 [facility] RHINITIS [facility] CAUSE UNSPECIFIED 7904 NONSPEC 01-15-2011 [facility] ELEVATION ASS[facility]ATES OF LEVELS OF TRANSAMINAS E/LDH 7948 NONSPECIFIC 01-15-2011 [facility] ABNORMAL PHYSICIANS RESULTS LA LIVR FUNCTION STUDY 33068 ULCERATIVE 01-06-2011 JOSEFINA BLEPHARITIS JAM 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 2382 NEOPLASM OF 12-30-2010 [facility]CERTAIN [facility] BEHAVIOR OF INC SKIN 3689 UNSPECIFIED 12-30-2010 JOSEFINA VISUAL JAM DISTURBANCE 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 12-02-2010 [facility] E SENILE JAM MACULAR DEGENERATIO N RETINA 7840 HEADACHE 10-16-2010 [facility] 33601 POST-TRAUMA 08-10-2010 [facility] TIC [facility] HEADACHE UNSPECIFIED 460 ACUTE 07-21-2010 [facility] NASOPHARYNG ASS[facility] ITIS 2761 HYPOSMOLALI 07-17-2010 [facility] TY AND/OR ASSOCIATES HYPONATREMI A 920 CONTUSION 07-13-2010 [place] [facility] SCALP AND IMAGING ASS NECK EXCEPT EYE V0481 NEED 04-03-2010 [facility] PROPHYLACTI ASSOCIATES C VACCINATION &INOCULATIO N FLU 9895 TOXIC 01-09-2009 [facility] EFFECT OF ASSOCIATES VENOM 7242 LUMBAGO 08-22-2008 [facility] 58837 CORNEAL 02-09-2008 PATEL, [place]ESS [place]QUE A 62805 PAIN IN 01-08-2008 [facility] ASSOC[facility] THIGH 7295 PAIN IN 08-11-2007 [facility] TISSUES OF LIMB Medications Na ND Rx Da Fi Fi Am Da Di Ph RX Ph St me C No te ll ll ou ys ag ar # ys at rm s nt no ma ic us Or Da si cy ia de te s n re d BR 60 09 09 1 18 5 [...] -[address] 03 RF ti 80 1- 1- 00 SI 10 LE ve 41 20 20 0 DE ET 50 11 11 R 4 PH AR HE MA NR CY Y OF CY NT HI AN A 60 11 11 0 18 5 EA 20 NO Ac 25 -2 -[address] 18 RF ti 80 9- 9- 00 SI 31 LE ve 23 20 20 [...] 0.5 ML DOSA GE IM USE IIV3 11- 141 NORF No FAMI 0-20 LEET LY VACC 09 , R CARE INE HENR SPLI Y ASSO T CIAT VIRU ES S 0.5 ML DOSA GE IM USE Procedures Procedure DOS Code Location Performer Comment DRUG TST G0477 [facility] PRESUMP;C 6 [facility] PBL BEING INC INC READ DC OPT OBV ONLY CREATINE 96493 [facility] KINASE 6 [facility] TOTAL INC INC ECG 97138 [facility] ROUTINE 6 [facility] ECG INC INC W/LEAST 12 LDS TRCG ONLY W/O I&R COMPREHEN 56599 [facility] SIVE 6 [facility] METABOLIC INC INC PANEL CREATINE 32179 [facility] F[facility] KINASE MB 6 [facility] FRACTION INC INC ONLY AMB A0427 [facility] SERVICE 6 AMBULANCE AMBULANCE ALS SERVICE SERVICE EMERGENCY TRANSPORT LEVEL 1 [place] [address] SO[facility] TROPONIN 6 [facility] QUANTITAT INC INC NATASHA BLOOD 51261 [facility] COUNT 6 [facility] COMPLETE INC INC AUTO&AUTO DIFRNTL WBC GROUND A[address] [place], [place] [id number] 6 AMBULANCE AMBULANCE PER SERVICE SERVICE STATUTE MILE ECG 11310 [facility] MAN ROUTINE 6 [facility] W/LEAST P 12 LDS I&R ONLY NONEMERG A0120 FEDERATED FEDERATED TRNSPRT: 6 MINI-BUS TRANSPORT TRANSPORT MTN ATION SER ATION SER AREA/OTH SYS SEAT E0156 [facility] GALLAGHER ATTACHMEN 6 HOME HOME T [facility]ICAL EQUIPME EQUIPME WALKER E0143 [facility] GARCIARELL FOLDING 6 HOME HOME WHEELED MEDICAL MEDICAL ADJUSTABL EQUIPME EQUIPME E/FIXED HEIGHT RADIOLOGI 17173 [facility] C EXAM 5 MEDICAL BARI CHEST 2 IMAGING VIEWS ASS FRONTAL&L ATERAL RADEX 33201 FLYNN FLYNN FOOT 3 TERESSA TERESSA COMPLETE MINIMUM 3 VIEWS RADEX 72285 FLYNN FLYNN FOOT 3 TERESSA TERESSA COMPLETE MINIMUM 3 [place] [address] SO[facility] INFUSION 3 [facility] THERAPY INC INC PROPHYLAX IS/[place] [address] [facility] INFUSION 3 [facility] THERAPY/P INC INC ROPHYLAXI S /DX 1ST TO 1 HR AMBULANCE A0429 [facility] SERVICE 3 AMBULANCE AMBULANCE BLS SERVICE SERVICE EMERGENCY TRANSPORT GROUND A0425 [facility] 3 AMBULANCE AMBULANCE PER SERVICE SERVICE STATUTE MILE XTRNL ECG 26794 SO[facility] FARAH & [address] [facility] RECORDING INC INC HOSPITAL G0378 [facility] F[facility] OBSERVATI 1 [facility] ON INC INC SERVICE PER HOUR HOSPITAL G0378 SO[facility] F[facility] OBSERVATI 1 [facility]OS[facility] ON INC INC SERVICE PER HOUR CREATINE 68896 SO[facility] FARAH KINASE MB [address] [facility] FRACTION INC INC ONLY COLLECTIO 08288 SOFI FARAH N VENOUS [address] [facility] [place]LOOD [place] [address] [facility] [address]AR[facility] TROPONIN [address] [facility] QUANTITAT INC INC NATASHA ECHO 29264 [facility] 1 INÉS GAYTAN 2D CARDIOLOG W/WOM-MOD Y CLINIC E COMPL SPEC&COLR D NONINVASI 27690 SO[facility] [address] VE [address] [facility] EAR/PULSE INC INC OXIMETRY SINGLE DETER CREATINE 76172 SO[facility] FAR[facility] KINASE [address] [facility] TOTAL INC INC ECG 19478 SO[facility]ARAH ROUTINE [address] [facility] ECG INC INC W/LEAST 12 LDS TRCG ONLY W/O I&R ECG 57088 SOFI VALERIOMILibby ROUTINE 1 [facility] W/LEAST P 12 LDS I&R ONLY GROUND A0425 [facility] AMBULANCE PER SERVICE SERVICE STATUTE MILE RHYTHM 17986 SOFI FARAH ECG 1-[address] [facility]OSP LEADS INC INC TRACING ONLY W/O I&[place] [address] SO[facility] FAR[facility] TROPONIN [address] [facility] QUANTITAT INC INC NATASHA ECG 43174 SOFI MAN ROUTINE 1 [facility] W/LEAST P 12 LDS I&R ONLY AMB A0427 [facility] SERVICE 1 AMBULANCE AMBULANCE ALS SERVICE SERVICE EMERGENCY TRANSPORT LEVEL 1 RADIOLOGI 41134 [facility] FL[facility]NN C 1 MEDICAL TERESSA EXAMINATI IMAGING ON CHEST ASS SINGLE VIEW FRONTAL ECG 50182 [facility] FARAH ROUTINE 1 [facility] ECG INC INC W/LEAST 12 LDS TRCG ONLY W/O I&R CREATINE 76000 [facility] F[facility]AH KINASE 1 [facility]OS[facility] TOTAL INC INC BLOOD 67068 [facility] FARAH COUNT 1 [facility] COMPLETE INC INC AUTO&AUTO DIFRNTL WBC COMPREHEN 87013 [facility] F[facility]AH SIVE 1 [facility] METABOLIC INC INC PANEL CREATINE 29576 SOFI FARAH KINASE MB 1 [facility] [place] [address] SOFI F[facility]AH THYROID 1 [facility] STIMULATI INC INC [facility] G0378 SO[facility] FARAH OBSERVATI 1 [facility] ON INC INC SERVICE PER HOUR BASIC 79487 COMBINED COMBINED METABOLIC 1 PHYSICIAN PHYSICIAN PANEL S LA S LA CALCIUM TOTAL HEPATIC 71585 COMBINED COMBINED FUNCTION 1 PHYSICIAN PHYSICIAN PANEL S LA S LA LIPID 56838 FAMILY MEGHANA PANEL 1 CARE R H ASSOCIATE S COLLECTIO 94556 FAMILY MEGHANA N VENOUS 1 CARE R H BLOOD [place] [address] PATHOLOGY PATHOLOGY SURG 1 & & PATHOLOGY CYTOLOGY CYTOLOGY LAB LAB GROSS&HUSAM ROSCOPIC EXAM EXC B9 46794 JOSEFINA MAYAEWS SHANITA MRGN 1 DEONTE CLEMONS XCP SK TG F/E/E/N/L /M 1.1-2.0CM REPAIR 96187 JOSEFINA ROCHA INTERMEDI 1 JAM JAM ATE F/E/E/N/L &/MUC 2.5 CM/< EXC B9 76939 [facility] DIEHL MRGN 1 [facility] XCP SK TG INC INC F/E/E/N/L /M 0.6-1.0CM OPHTHALMO 45244 JOSEFINA ROCHA SCPY 1 DEONTE CLEMONS EXTENDED RETINAL DRAWING I&R 1ST HEPATIC 85896 COMBINED COMBINED FUNCTION 1 PHYSICIAN PHYSICIAN PANEL S LA S LA LIPID 29378 FAMILY MEGHANA PANEL 1 CARE R H ASSOCIATE S BASIC 90429 COMBINED COMBINED METABOLIC 1 PHYSICIAN PHYSICIAN PANEL S LA S LA CALCIUM TOTAL COLLECTIO 55630 FAMILY MEGHANA N VENOUS 1 CARE R H BLOOD ASSOCIATE VENIPUNCT S URE IAADIADOO 79024 FAMILY MEGHANA 1 CARE R H INFLUENZA ASSOCIATE S BLOOD 89196 FAMILY FAMILY COUNT 1 CARE CARE COMPLETE ASSOCIATE ASSOCIATE AUTO&AUTO S S DIFRNTL WBC 3D 23182 [place] [facility] RENDERING 1 MEDICAL TERESSA W/INTERP IMAGING & [place] [address] [place] [facility] HEAD/BRAI 1 MEDICAL TERESSA N W/O & IMAGING W/CONTRAS ASS T MATERIAL COLLECTIO 26335 [facility] F[facility]AH N VENOUS 1 [facility] [place]LOOD [place] [address] [facility] NITROGEN INC INC QUANTITAT NATASHA DUPLEX 09127 [place] FLY[place] SCAN 1 MEDICAL TERESSA EXTRACRAN IMAGING IAL ART ASS COMPL BI STUDY CREATININ 19593 SO[facility] FARAH E BLOOD 1 [facility] INC INC XTRNL ECG 44200 SOFI BESSON 1 [facility] S RHYTHM P W/I&R UP TO 48 HRS EXTERNAL 84056 SO[facility] FARAH ECG 1 [facility] SCANNING INC INC ANALYSIS REPORT RADIOLOGI 10604 SOFI FARAH C EXAM [address] [facility] CHEST 2 INC INC VIEWS FRONTAL&L ATERAL XTRNL ECG 23375 SO[facility] FARAH & 48 HR 1 [facility] RECORDING INC INC BLOOD 31299 FAMILY FAMILY COUNT 1 CARE CARE COMPLETE ASSOCIATE ASSOCIATE AUTO&AUTO S S DIFRNTL WBC COMPREHEN 12297 COMBINED COMBINED SIVE 1 PHYSICIAN PHYSICIAN METABOLIC S LA S LA PANEL COLLECTIO 94562 FAMILY MEGHANA N VENOUS 1 CARE R H BLOOD ASSOCIATE VENIPUNCT S URE LIPID 17943 FAMILY MEGHANA PANEL 1 CARE R H ASSOCIATE S BLOOD 91853 FAMILY FAMILY COUNT 1 CARE CARE COMPLETE ASSOCIATE ASSOCIATE AUTO&AUTO S S DIFRNTL WBC IIV3 61854 FAMILY MEGHANA VACCINE 0 CARE R H SPLIT ASSOCIATE VIRUS 0.5 S ML DOSAGE IM USE ADMINISTR G0008 FAMILY EMGHANA ATION OF 0 CARE R H INFLUENZA ASSOCIATE VIRUS S VACCINE COLLECTIO 42359 [facility]AH N VENOUS 0 [facility] BLOOD INC INC VENIPUNCT URE PROSTATE G0103 SOFI MEYERON CANCER 0 [facility] SCREENING INC INC ; PSA TEST LIPID 36884 SO[facility] MEYERON PANEL 0 [facility] INC INC HEPATIC 62917 SOFI MEYERON FUNCTION 0 [facility] PANEL INC INC BASIC 29989 SO[facility] FARAH METABOLIC 0 [facility] PANEL INC INC CALCIUM TOTAL ADMINISTR G0008 FAMILY KOWALSKI, ATION OF 9 CARE R SAGAR INFLUENZA ASSOCIATE VIRUS S VACCINE IIV3 77775 FAMILY KOWALSKI, VACCINE 9 CARE R SAGAR SPLIT ASSOCIATE VIRUS 0.5 S ML DOSAGE IM USE BLOOD 99419 FAMILY MULBERRY, COUNT 9 CARE MATI T COMPLETE ASSOCIATE AUTO&AUTO S DIFRNTL WBC LIPID 65795 [facility] F[facility]AH PANEL 9 [facility] INC INC HEPATIC 66992 SOFI SOFI FUNCTION 9 [facility] PANEL INC INC COLLECTIO 57395 SOFI FARAH N VENOUS 9 [facility] BLOOD INC INC VENIPUNCT URE BASIC 97123 SO[facility] F[facility]AH METABOLIC 9 [facility] PANEL INC INC CALCIUM TOTAL BASIC 32763 SOFI MEYERON METABOLIC 9 [facility] PANEL INC INC CALCIUM TOTAL LIPID 19233 [facility] F[facility]AH PANEL 9 [facility] INC INC HEPATIC 67569 SOFI MEYERON FUNCTION 9 [facility] PANEL INC INC COLLECTIO 70196 SOFI MEYERON N VENOUS 9 [facility] BLOOD INC INC VENIPUNCT URE OPHTH 75712 JORGE PATEL, [facility] 8 ENRRIQUE OSUNA A XM&EVAL COMPRHNSV ESTAB PT 1/> COLLECTIO 28236 SOFI FARAH N VENOUS 8 [facility] BLOOD INC INC VENIPUNCT URE COMPREHEN 62517 [facility] F[facility]AH SIVE 8 [facility] METABOLIC INC INC PANEL RADEX 13043 ASHOK DECKER SPINE 8 CITLALLI Azul LUMBOSACR IMAGING AL ASSOCIATE MINIMUM 4 S VIEWS RADEX HIP 74447 SOFI FARAH 8 [facility] UNILATERA INC INC L COMPLETE MINIMUM 2 VIEWS PROSTATE G0103 [facility] CANCER 8 [facility] SCREENING INC INC ; PSA TEST LIPID 44584 [facility] PANEL 8 [facility] INC INC RADIOLOGI 58148 [facility] F[facility]AH C 8 [facility] EXAMINATI INC INC ON PELVIS 1/2 [place] [address] ASHOK JERONIMO ABDOMINAL 8 CITLALLI Azul REAL IMAGING TIME ASSOCIATE W/IMAGE S LIMITED Encounters Encounter Start End Date Code Location Performer Type Date EMERGENCY 84301 SO[facility] 6 6 [facility] DEPARTMEN INC T VISIT MODERATE SEVERITY HOSPITAL SO[facility] - 6 6 [facility] OUTPATIEN [facility] T [facility]PITAL SO[facility] - 6 6 [facility] OUTPATIEN INC T EMERGENCY 72472 SOFI 6 6 [facility] DEPARTMEN [facility] T VISIT MODERATE SEVERITY EMERGENCY 52037 SOFI WALLACEEY 5 5 [facility] T VISIT P MODERATE SEVERITY HOSPITAL SOFI - 5 5 [facility] OUTPATIEN [facility] T [facility]PITAL SOFI - 3 3 [facility] OUTPATIEN INC T OFFICE 39435 MEGHANA MEGHANA OUTPATIEN 3 3 R H R H T VISIT 15 MINUTES OFFICE 17971 FAMILY MEGHANA OUTPATIEN 2 2 CARE R H T VISIT ASSOCIATE 25 S MINUTES OFFICE 96983 FALLUJI FALLUJI OUTPATIEN 2 2 [facility] G[facility] T VISIT 25 MINUTES HOSPITAL SOFI - 1 1 [facility] OUTPATIEN INC T EMERGENCY 09509 MARCIO BEAULIEU DEPT 1 1 EMERGENCY JAM VISIT SERVICES HIGH SEVERITY& THREAT [facility] SOFI - 1 1 [facility] OUTPATIEN INC T EMERGENCY 41531 SOFI 1 1 [facility] DEPARTMEN INC T VISIT HIGH/URGE NT SEVERITY OFFICE 54542 FAMILY MEGHANA OUTPATIEN 1 1 CARE R H T VISIT ASSOCIATE 25 S MINUTES OFFICE 26977 JOSEFINA ROCHA OUTPATIEN 1 1 JAM JAM T VISIT 25 MINUTES HOSPITAL SOFI - 1 1 [facility] OUTPATIEN INC T OFFICE 06524 JOSEFINA ROCHA OUTPATIEN 1 1 JAM JAM T NEW 60 MINUTES OFFICE 65210 FAMILY MEGHANA OUTPATIEN 1 1 CARE R H T VISIT ASSOCIATE 25 S MINUTES OFFICE 44139 FAMILY MEGHANA OUTPATIEN 1 1 CARE R H T VISIT ASSOCIATE 15 S MINUTES OFFICE 19825 FAMILY MEGHANA OUTPATIEN 1 1 CARE R H T VISIT ASSOCIATE 15 S MINUTES OFFICE 61415 FAMILY MEGHANA OUTPATIEN 1 1 CARE R H T VISIT ASSOCIATE 15 S MINUTES HOSPITAL SOFI - 1 1 [facility] OUTPATIEN INC T HOSPITAL SOFI - 1 1 [facility] OUTPATIEN INC T OFFICE 83298 FAMILY MEGHANA OUTPATIEN 1 1 CARE R H T VISIT ASSOCIATE 25 S MINUTES OFFICE 60455 FAMILY MULBERRY OUTPATIEN 1 1 CARE SRINIVAS T VISIT ASSOCIATE 15 S MINUTES OFFICE 97083 FAMILY MEGHANA OUTPATIEN 1 1 CARE R H T VISIT ASSOCIATE 15 S MINUTES OFFICE 03340 FAMILY MEGHANA OUTPATIEN 0 0 CARE R H T VISIT ASSOCIATE 15 S MINUTES OFFICE 83743 FAMILY MEGHANA OUTPATIEN 0 0 CARE R H T VISIT ASSOCIATE 15 S MINUTES HOSPITAL SOFI - 0 0 [facility] OUTPATIEN INC T OFFICE 69910 FAMILY MEGHANA, OUTPATIEN 0 0 CARE R SAGAR T VISIT ASSOCIATE 25 S MINUTES OFFICE 30451 FAMILY MULBERRY, OUTPATIEN 9 9 CARE MATI T T VISIT ASSOCIATE 15 S MINUTES OFFICE 11319 FAMILY MEGHANA, OUTPATIEN 9 9 CARE R SAGAR T VISIT ASSOCIATE 15 S MINUTES HOSPITAL SOFI - 9 9 [facility] OUTPATIEN INC T OFFICE 61442 FAMILY MEGHANA, OUTPATIEN 9 9 CARE R SAGAR T VISIT ASSOCIATE 15 S MINUTES HOSPITAL SOFI - 9 9 [facility] OUTPATIEN INC T OFFICE 46420 FAMILY MEGHANA, OUTPATIEN 8 8 CARE R SAGAR T VISIT ASSOCIATE 15 S MINUTES HOSPITAL SOFI - 8 8 [facility] OUTPATIEN INC T OFFICE 38631 FAMILY MEGHANA, OUTPATIEN 8 8 CARE R SAGAR T VISIT ASSOCIATE 25 S MINUTES OFFICE 39490 FAMILY MEGHANA, OUTPATIEN 8 8 CARE R SAGAR T VISIT ASSOCIATE 25 S MINUTES OFFICE 36415 FAMILY FAMILY OUTPATIEN 8 8 CARE CARE T VISIT ASSOCIATE ASSOCIATE 15 S S MINUTES OFFICE 43260 FAMILY FAMILY OUTPATIEN 8 8 CARE CARE T VISIT ASSOCIATE ASSOCIATE 15 S S MINUTES OFFICE 98222 PATEL, PATEL, OUTPATIEN 8 8 ENRRIQUE A ENRRIQUE A T VISIT 10 MINUTES
--- OUTSIDE RECORDS SUMMARY | 2016-12-14 09:01 | External Medical Summary Rpt ---
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 Name Role Phone GERSON CANDELARIA, GERSON Unavailable Unavailable BARI MAN SHASHI, MAGDA Unavailable Unavailable SHASHI [facility] Unavailable Unavailable SERVICE, [facility] Unavailable Unavailable SERVICE, [facility] Unavailable Unavailable [place], [facility] Unavailable Unavailable [facility], [facility] FLYNN TERESSA, Unavailable Unavailable FLYNN TERESSA FLYNN TERESSA, Unavailable Unavailable FLYNN TERESSA [facility] Unavailable Unavailable [place], [facility] [place] FALLUJI LUKAS, FALLUJI Unavailable Unavailable [facility] FALLUJI LUKAS, FALLUJI Unavailable Unavailable [facility] Unavailable Unavailable [facility], [facility] Unavailable Unavailable [facility]OCI[facility] Unavailable Unavailable TRANSPORTATION SER, [facility] FOSTER JAM, FOSTER Unavailable Unavailable JAM FANY HUSAM, FANY Unavailable Unavailable HUSAM [facility] Un[facility] Un[facility], [facility] Unavailable Unavailable [facility]PITAL P, [facility] ENRRIQUE PATEL, Unavailable Unavailable ENRRIQUE PATEL [facility] Un[facility] Unavailable [facility], [facility] Unavailable Unavailable SERVICES, [facility] JOSEFINA CLEMONS, Unavailable Unavailable JOSEFINA [...] Unavailable Unavailable LAB, PATHOLOGY & CYTOLOGY LAB [facility] Unavailable [facility]available EQUIPME, [facility] Unavailable Unavailable EQUIPME, [facility] Unavailable Unavailable CLINIC, [facility] Purpose Continuity of Care Document - 08-08-2007 through 2016 Problems Code Diagnosis DOS Provider Status I10 ESSENTIAL 09-12-2015 [facility] HYPERTENSI[facility] N K219 GASTRO-ESOP 09-12-2015 [facility] DISEASE INC WITHOUT ESOPHAGITIS [id number] ABRASION OF 09-12-2015 [facility] WRIST INC INITIAL ENCOUNTER H8303 LABYRINTHIT 09-08-2015 [facility] IS [facility] P R531 WEAKNESS 09-08-2015 [facility] SERVICE R55 SYNCOPE AND 09-08-2015 [facility] COLLAPSE AMBULANCE SERVICE [id number] OTHER LONG 09-08-[address] [facility] P DRUG THERAPY 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 [id number] CELLULITIS 09-03-2015 [facility] OF [facility]ICAL EQUIPME 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 R69 ILLNESS 09-03-2015 [facility] UNSPECIFIED TRANSPORTAT ION SER 74002 ASTHMA, 06-14-2014 [facility] UNSPECIFIED [facility] P UNSPECIFIED STATUS 7862 COUGH 06-14-2014 [facility] 6827 CELLULITIS 05-07-2013 FLYNN AND ABSCESS TERESSA OF FOOT EXCEPT TOES 4019 UNSPECIFIED 04-20-2013 [facility] HYPERTENSIO INC N 6829 CELLULITIS 04-20-2013 [facility] AND ABSCESS AMBULANCE OF SERVICE UNSPECIFIED SITE 23868 PAIN IN 04-20-2013 [facility], AMBULANCE ANKLE AND SERVICE FOOT 67804 SWELLING OF 04-20-2013 FLYNN LIMB TERESSA 31644 ESOPHAGEAL 10-03-2012 [facility] R REFLUX H V7644 SPECIAL 10-03-2012 [facility] R SCREENING H MALIGNANT NEOPLASM OF PROSTATE 2724 OTHER AND 09-30-2011 [facility] UNSPECIFIED ASSOCIATES HYPERLIPIDE FREDDIE 7802 SYNCOPE AND 05-17-2011 FALLUJI LUKAS COLLAPSE 4011 ESSENTIAL 04-12-2011 FALLUJI L[facility]AS HYPERTENSIO N, BENIGN 96211 ATRIAL 03-04-[address] [facility] 7851 PALPITATION 03-04-2011 [facility] 4293 CARDIOMEGAL 03-03-2011 [facility] 436 ACUTE BUT 03-03-2011 [facility] ILL-DEFINED AMBULANCE SERVICE CEREBROVASC ULAR DISEASE 7801 HALLUCINATI 03-03-2011 [facility] INC 76982 OTHER 03-03-2011 [facility] V5869 LONG-TERM 03-03-2011 [facility] (CURRENT) [facility] USE OF INC OTHER MEDICATIONS 4779 ALLERGIC 01-15-2011 [facility] RHINITIS [facility] CAUSE UNSPECIFIED 7904 NONSPEC 01-15-2011 [facility] ELEVATION ASSOCIATES OF LEVELS OF TRANSAMINAS E/LDH 7948 NONSPECIFIC 01-15-2011 [facility] ABNORMAL PHYSICIANS RESULTS LA LIVR FUNCTION STUDY 73874 ULCERATIVE 01-06-2011 JOSEFINA BLEPHARITIS JAM 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 2382 NEOPLASM OF 12-30-2010 [facility] UNCERTAIN [facility] BEHAVIOR OF INC SKIN 3689 UNSPECIFIED 12-30-2010 JOSEFINA VISUAL JAM DISTURBANCE 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 LAB 76353 NONEXUDATIV 12-02-2010 [facility] E SENILE JAM MACULAR DEGENERATIO N RETINA 7840 HEADACHE 10-16-2010 [facility] 22039 POST-TRAUMA 08-10-2010 [facility] TIC [facility] HEADACHE UNSPECIFIED 460 ACUTE 07-21-2010 [facility] NASOPHARYNG ASSOCIATES ITIS 2761 HYPOSMOLALI 07-17-2010 [facility] TY AND/OR ASSOCIATES HYPONATREMI A 920 CONTUSION 07-13-2010 [place] [facility]P [facility] IM[facility] ASS NECK EXCEPT EYE V0481 NEED 04-03-2010 [facility] PROPHYLACTI ASSOCIATES C VACCINATION &INOCULATIO N FLU 9895 TOXIC 01-09-2009 [facility] EFFECT OF ASSOCIATES VENOM 7242 LUMBAGO 08-22-2008 [facility] 60418 CORNEAL 02-09-2008 PATEL, ABSCESS ENRRIQUE A 65320 PAIN IN 01-08-2008 [facility] P[facility] AND ASSOCIATES THIGH 7295 PAIN IN 08-11-2007 [facility] CARE SOFT ASSOCIATES TISSUES OF LIMB Medications [...] INC READ DC OPT OBV ONLY CREATINE 28466 [facility] KINASE 6 [facility] TOTAL INC INC ECG 06680 SOFI FARAH ROUTINE 6 [facility] ECG INC INC W/LEAST 12 LDS TRCG ONLY W/O I&R COMPREHEN 78923 SOFI F[facility]AH SIVE 6 [facility] METABOLIC INC INC PANEL CREATINE 51173 SOFI FARAH KINASE MB 6 [facility] FRACTION INC INC ONLY AMB A0427 [facility] SERVICE 6 AMBULANCE AMBULANCE ALS SERVICE SERVICE EMERGENCY TRANSPORT LEVEL [address] [place] [address] SOFI FARAH TROPONIN 6 [facility] QUANTITAT INC INC NATASHA BLOOD 72620 SOFI SOFI COUNT 6 [facility] COMPLETE INC INC AUTO&AUTO DIFRNTL WBC GROUND A[address] [place], [place] [address]EA 6 AMBULANCE AMBULANCE PER SERVICE SERVICE STATUTE MILE ECG 64834 SO[facility] MAN ROUTINE 6 [facility] W/LEAST P 12 LDS I&R ONLY NONEMERG A0120 FEDERATED FEDERATED TRNSPRT: 6 MINI-BUS TRANSPORT TRANSPORT MTN ATION SER ATION SER AREA/OTH SYS SEAT E0156 [facility] GALLAGHER ATTACHMEN 6 HOME HOME T [facility]ICAL MEDICAL EQUIPME EQUIPME WALKER E0143 ELL[facility]OTT GARCIARELL FOLDING 6 HOME HOME WHEELED MEDICAL MEDICAL ADJUSTABL EQUIPME EQUIPME E/FIXED HEIGHT RADIOLOGI 67424 [facility] C EXAM 5 MEDICAL BARI CHEST 2 IMAGING VIEWS ASS FRONTAL&L ATERAL RADEX 47539 FLYNN FLYNN FOOT 3 TERESSA TERESSA COMPLETE MINIMUM 3 VIEWS RADEX 67333 FLYNN FLYNN FOOT 3 TERESSA TERESSA COMPLETE MINIMUM 3 [place] [address] SOFI FARAH INFUSION 3 [facility] THERAPY INC INC PROPHYLAX IS/[place] [address] SOFI FARAH INFUSION 3 [facility] THERAPY/P INC INC ROPHYLAXI S /DX 1ST TO 1 HR AMBULANCE A0429 [facility] SERVICE 3 AMBULANCE AMBULANCE BLS SERVICE SERVICE EMERGENCY TRANSPORT GROUND A0425 [facility] 3 AMBULANCE AMBULANCE PER SERVICE SERVICE STATUTE MILE XTRNL ECG 67991 SOFI FARAH & 48 HR 1 [facility] HOSP RECORDING INC INC HOSPITAL G0378 SOFI FARAH OBSERVATI 1 [facility] MEM HOSP ON INC INC SERVICE PER HOUR HOSPITAL G0378 SOFI FARAH OBSERVATI 1 [facility] MEM HOS[facility] ON INC INC SERVICE PER HOUR CREATINE 81189 SOFI FARAH KINASE MB 1 [facility] HOSP FRACTION INC INC ONLY COLLECTIO 22767 SOFI FARAH N VENOUS 1 [facility] HOSP [place] [address] SOFI FARAH TROPONIN 1 [facility] HOSP QUANTITAT INC INC NATASHA ECHO 16309 [facility] R-T 1 INÉS GAYTAN 2D CARDIOLOG W/WOM-MOD Y CLINIC E COMPL SPEC&COLR D NONINVASI 67358 SOFI FARAH VE 1 [facility] HOSP EAR/PULSE INC INC OXIMETRY SINGLE DETER CREATINE 51946 SOFI FARAH KINASE 1 [facility] HOSP TOTAL INC INC ECG 28783 SFOI FARAH ROUTINE 1 [facility] HOSP ECG INC INC W/LEAST 12 LDS TRCG ONLY W/O I&R ECG 28677 SOFI VALERIOMILibby ROUTINE 1 [facility] W/LEAST P 12 LDS I&R ONLY GROUND A0425 [facility] AMBULANCE PER SERVICE SERVICE STATUTE MILE RHYTHM 10257 SOFI FARAH ECG 1-3 1 [facility] HOSP LEADS INC INC TRACING ONLY W/O I&[place] [address] SOFI FARAH TROPONIN 1 [facility] HOSP QUANTITAT INC INC NATASHA ECG 26322 SOFI MAN ROUTINE 1 [facility] W/LEAST P 12 LDS I&R ONLY AMB A0427 [facility] SERVICE 1 AMBULANCE AMBULANCE ALS SERVICE SERVICE EMERGENCY TRANSPORT LEVEL 1 RADIOLOGI 44988 [facility] FLYNN C 1 MEDICAL TERESSA EXAMINATI IMAGING ON CHEST ASS SINGLE VIEW FRONTAL ECG 18738 SOFI FARAH ROUTINE 1 [facility] ECG INC INC W/LEAST 12 LDS TRCG ONLY W/O I&R CREATINE 27821 SOFI FARAH KINASE 1 [facility] TOTAL INC INC BLOOD 72654 SOFI FARAH COUNT 1 [facility] COMPLETE INC INC AUTO&AUTO DIFRNTL WBC COMPREHEN 94246 SOFI FARAH SIVE 1 [facility] METABOLIC INC INC PANEL CREATINE 65596 SOFI FARAH KINASE MB 1 [facility] [place] [address] SOFI FARAH THYROID 1 [facility] STIMULATI INC INC [facility] G0378 SOFI FARAH OBSERVATI 1 [facility] ON INC INC SERVICE PER HOUR BASIC 72136 COMBINED COMBINED METABOLIC 1 PHYSICIAN PHYSICIAN PANEL S LA S LA CALCIUM TOTAL HEPATIC 84879 COMBINED COMBINED FUNCTION 1 PHYSICIAN PHYSICIAN PANEL S LA S LA LIPID 50779 FAMILY MEGHANA PANEL 1 CARE R H ASSOCIATE S COLLECTIO 99385 FAMILY MEGHANA N VENOUS 1 CARE R H [place]LOOD [place] [address] PATHOLOGY PATHOLOGY SURG 1 & & PATHOLOGY CYTOLOGY CYTOLOGY LAB LAB GROSS&HUSAM ROSCOPIC EXAM EXC B9 05695 JOSEFINA MAYAEWS SHANITA MRGN 1 DEONTE CLEMONS XCP SK TG F/E/E/N/L /M 1.1-2.0CM REPAIR 31190 JOSEFINA ROCHA INTERMEDI 1 JAM JAM ATE F/E/E/N/L &/MUC 2.5 CM/< EXC B9 82302 SO[facility] DIEHL MRGN 1 [facility] XCP SK TG INC INC F/E/E/N/L /M 0.6-1.0CM OPHTHALMO 62713 JOSEFINA ROCHA SCPY 1 DEONTE CLEMONS EXTENDED RETINAL DRAWING I&R 1ST HEPATIC 43968 COMBINED COMBINED FUNCTION 1 PHYSICIAN PHYSICIAN PANEL S LA S LA LIPID 92548 FAMILY MEGHANA PANEL 1 CARE R H ASSOCIATE S BASIC 08849 COMBINED COMBINED METABOLIC 1 PHYSICIAN PHYSICIAN PANEL S LA S LA CALCIUM TOTAL COLLECTIO 37731 FAMILY MEGHANA N VENOUS 1 CARE R H BLOOD ASSOCIATE VENIPUNCT S URE IAADIADOO 85854 FAMILY MEGHANA 1 CARE R H INFLUENZA ASSOCIATE S BLOOD 60815 FAMILY FAMILY COUNT 1 CARE CARE COMPLETE ASSOCIATE ASSOCIATE AUTO&AUTO S S DIFRNTL WBC 3D 97086 [place] [facility] RENDERING 1 MEDICAL TERESSA W/INTERP IMAGING & [place] [address] [place] [facility] HEAD/BRAI 1 MEDICAL TERESSA N W/O & IMAGING W/CONTRAS ASS T MATERIAL COLLECTIO 16667 SOFI FARAH N VENOUS 1 [facility] BLOOD [place] [address] SOFI FARAH UREA 1 [facility] HOSP NITROGEN INC INC QUANTITAT NATASHA DUPLEX 73590 [place] FLYNN SCAN 1 MEDICAL TERESSA EXTRACRAN IMAGING IAL ART ASS COMPL BI STUDY CREATININ 65089 SOFI FARAH E BLOOD 1 [facility] INC INC XTRNL ECG 24959 SOFI BESSON 1 [facility] S RHYTHM P W/I&R UP TO 48 HRS EXTERNAL 94032 SOFI FARAH ECG 1 [facility] SCANNING INC INC ANALYSIS REPORT RADIOLOGI 34673 SOFI FARAH C EXAM 1 [facility]OSP CHEST 2 INC INC VIEWS FRONTAL&L ATERAL XTRNL ECG 71124 SOFI FARAH & 48 HR 1 [facility] RECORDING INC INC BLOOD 46543 FAMILY FAMILY COUNT 1 CARE CARE COMPLETE ASSOCIATE ASSOCIATE AUTO&AUTO S S DIFRNTL WBC COMPREHEN 23237 COMBINED COMBINED SIVE 1 PHYSICIAN PHYSICIAN METABOLIC S LA S LA PANEL COLLECTIO 42871 FAMILY MEGHANA N VENOUS 1 CARE R H BLOOD ASSOCIATE VENIPUNCT S URE LIPID 59696 FAMILY MEGHANA PANEL 1 CARE R H ASSOCIATE S BLOOD 97174 FAMILY FAMILY COUNT 1 CARE CARE COMPLETE ASSOCIATE ASSOCIATE AUTO&AUTO S S DIFRNTL WBC IIV3 26532 FAMILY MEGHANA VACCINE 0 CARE R H SPLIT ASSOCIATE VIRUS 0.5 S ML DOSAGE IM USE ADMINISTR G0008 FAMILY MEGHANA ATION OF 0 CARE R H INFLUENZA ASSOCIATE VIRUS S VACCINE COLLECTIO 50593 SOFI FARAH N VENOUS 0 [facility] BLOOD INC INC VENIPUNCT URE PROSTATE G0103 SOFI MEYERON CANCER 0 [facility] SCREENING INC INC ; PSA TEST LIPID 50809 SOFI MEYERON PANEL 0 [facility] INC INC HEPATIC 53871 SOFI MEYERON FUNCTION 0 [facility] PANEL INC INC BASIC 30315 SOFI FARAH METABOLIC 0 [facility] PANEL INC INC CALCIUM TOTAL ADMINISTR G0008 FAMILY KOWALSKI, ATION OF 9 CARE R SAGAR INFLUENZA ASSOCIATE VIRUS S VACCINE IIV3 77102 FAMILY KOWALSKI, VACCINE 9 CARE R SAGAR SPLIT ASSOCIATE VIRUS 0.5 S ML DOSAGE IM USE BLOOD 27937 FAMILY MULBERRY, COUNT 9 CARE MATI T COMPLETE ASSOCIATE AUTO&AUTO S DIFRNTL WBC LIPID 34983 SO[facility] FARAH PANEL 9 [facility] INC INC HEPATIC 38295 SOFI SOFI FUNCTION 9 [facility] PANEL INC INC COLLECTIO 66570 SOFI FARAH N VENOUS 9 [facility] BLOOD INC INC VENIPUNCT URE BASIC 44474 SOFI FARAH METABOLIC 9 [facility] PANEL INC INC CALCIUM TOTAL BASIC 44508 SOFI MEYERON METABOLIC 9 [facility] PANEL INC INC CALCIUM TOTAL LIPID 69289 SOFI FARAH PANEL 9 [facility] INC INC HEPATIC 20048 SOFI MEYERON FUNCTION 9 [facility] PANEL INC INC COLLECTIO 04281 SOFI MEYERON N VENOUS 9 [facility] BLOOD INC INC VENIPUNCT URE OPHTH 33044 JORGE PATEL, [facility] 8 ENRRIQUE OUSNA A XM&EVAL COMPRHNSV ESTAB PT 1/> COLLECTIO 13308 SOFI FARAH N VENOUS 8 [facility] BLOOD INC INC VENIPUNCT URE COMPREHEN 76741 SOFI FARAH SIVE 8 [facility] METABOLIC INC INC PANEL RADEX 68533 ASHOK DECKER SPINE 8 CITLALLI Azul LUMBOSACR IMAGING AL ASSOCIATE MINIMUM 4 S VIEWS RADEX HIP 88433 SOFI FARAH 8 [facility] UNILATERA INC INC L COMPLETE MINIMUM 2 VIEWS PROSTATE G0103 SOFI F[facility]AH CANCER 8 [facility] SCREENING INC INC ; PSA TEST LIPID 10584 SO[facility] F[facility]AH PANEL 8 [facility] INC INC RADIOLOGI 83672 SOFI FARAH C 8 [facility] EXAMINATI INC INC ON PELVIS 1/2 [place] [address] ASHOK JERONIMO ABDOMINAL 8 CITLALLI Azul REAL IMAGING TIME ASSOCIATE W/IMAGE S LIMITED Encounters Encounter Start End Date Code Location Performer Type Date EMERGENCY 09225 SOFI 6 6 [facility] DEPARTMEN INC T VISIT MODERATE SEVERITY HOSPITAL SOFI - 6 6 [facility] OUTPATIEN INC T HOSPITAL SOFI - 6 6 [facility] OUTPATIEN INC T EMERGENCY 10307 SOFI 6 6 [facility] DEPARTMEN [facility] T VISIT MODERATE SEVERITY EMERGENCY 93757 SOFI WALLACEEY 5 5 [facility] T VISIT P MODERATE SEVERITY HOSPITAL SOFI - 5 5 [facility] OUTPATIEN INC T [facility]OSPITAL SOFI - 3 3 [facility] OUTPATIEN INC T OFFICE 77541 MEGHANA MEGHANA OUTPATIEN 3 3 R H R H T VISIT 15 MINUTES OFFICE 52782 FAMILY MEGHANA OUTPATIEN 2 2 CARE R H T VISIT ASSOCIATE 25 S MINUTES OFFICE 73411 FALLUJI FALLUJI OUTPATIEN 2 2 [facility] GAYTAN T VISIT 25 MINUTES HOSPITAL SOFI - 1 1 [facility] OUTPATIEN INC T EMERGENCY 01744 MARCIO BEAULIEU DEPT 1 1 EMERGENCY JAM VISIT SERVICES HIGH SEVERITY& THREAT [facility] SOFI - 1 1 [facility] OUTPATIEN INC T EMERGENCY 34577 SOFI 1 1 [facility] DEPARTMEN INC T VISIT HIGH/URGE NT SEVERITY OFFICE 06775 FAMILY MEGHANA OUTPATIEN 1 1 CARE R H T VISIT ASSOCIATE 25 S MINUTES OFFICE 51408 JOSEFINA ROCHA OUTPATIEN 1 1 JAM JAM T VISIT 25 MINUTES HOSPITAL SOFI - 1 1 [facility] OUTPATIEN INC T OFFICE 91594 JOSEFINA ROCHA OUTPATIEN 1 1 JAM JAM T NEW 60 MINUTES OFFICE 08300 FAMILY MEGHANA OUTPATIEN 1 1 CARE R H T VISIT ASSOCIATE 25 S MINUTES OFFICE 78861 FAMILY MEGHANA OUTPATIEN 1 1 CARE R H T VISIT ASSOCIATE 15 S MINUTES OFFICE 28303 FAMILY MEGHANA OUTPATIEN 1 1 CARE R H T VISIT ASSOCIATE 15 S MINUTES OFFICE 88795 FAMILY MEGHANA OUTPATIEN 1 1 CARE R H T VISIT ASSOCIATE 15 S MINUTES HOSPITAL SOFI - 1 1 [facility] OUTPATIEN INC T HOSPITAL SOFI - 1 1 [facility] OUTPATIEN INC T OFFICE 42962 FAMILY MEGHANA OUTPATIEN 1 1 CARE R H T VISIT ASSOCIATE 25 S MINUTES OFFICE 78042 FAMILY MULBERRY OUTPATIEN 1 1 CARE SRINIVAS T VISIT ASSOCIATE 15 S MINUTES OFFICE 47203 FAMILY MEGHANA OUTPATIEN 1 1 CARE R H T VISIT ASSOCIATE 15 S MINUTES OFFICE 96910 FAMILY MEGHANA OUTPATIEN 0 0 CARE R H T VISIT ASSOCIATE 15 S MINUTES OFFICE 30923 FAMILY MEGHANA OUTPATIEN 0 0 CARE R H T VISIT ASSOCIATE 15 S MINUTES HOSPITAL SOFI - 0 0 [facility] OUTPATIEN INC T OFFICE 84756 FAMILY MEGHANA, OUTPATIEN 0 0 CARE R SAGAR T VISIT ASSOCIATE 25 S MINUTES OFFICE 47360 FAMILY MULBERRY, OUTPATIEN 9 9 CARE MATI T T VISIT ASSOCIATE 15 S MINUTES OFFICE 57051 FAMILY MEGHANA, OUTPATIEN 9 9 CARE R SAGAR T VISIT ASSOCIATE 15 S MINUTES HOSPITAL SOFI - 9 9 [facility] OUTPATIEN INC T OFFICE 55469 FAMILY MEGHANA, OUTPATIEN 9 9 CARE R SAGAR T VISIT ASSOCIATE 15 S MINUTES HOSPITAL SOFI - 9 9 [facility] OUTPATIEN INC T OFFICE 07340 FAMILY MEGHANA, OUTPATIEN 8 8 CARE R SAGAR T VISIT ASSOCIATE 15 S MINUTES HOSPITAL SOFI - 8 8 [facility] OUTPATIEN INC T OFFICE 08625 FAMILY MEGHANA, OUTPATIEN 8 8 CARE R SAGAR T VISIT ASSOCIATE 25 S MINUTES OFFICE 41470 FAMILY MEGHANA, OUTPATIEN 8 8 CARE R SAGAR T VISIT ASSOCIATE 25 S MINUTES OFFICE 24410 FAMILY FAMILY OUTPATIEN 8 8 CARE CARE T VISIT ASSOCIATE ASSOCIATE 15 S S MINUTES OFFICE 16646 FAMILY FAMILY OUTPATIEN 8 8 CARE CARE T VISIT ASSOCIATE ASSOCIATE 15 S S MINUTES OFFICE 77184 PATEL, PATEL, OUTPATIEN 8 8 ENRRIQUE A ENRRIQUE A T VISIT 10 MINUTES
--- OUTSIDE RECORDS SUMMARY | 2016-12-14 09:02 | External Medical Summary Rpt ---
Demographics Preferred Language Italian Marital Status Unknown Gnosticist Affiliation Unknown Race Unknown Ethnic Group Unknown Author Author , ANTOINETTE KRAUSE Address Unknown Phone Immunization Unable to retrieve immunization data due to connection failure with Immunization Registry. Please try again later.
--- OUTSIDE RECORDS SUMMARY | 2016-12-14 09:02 | External Medical Summary Rpt ---
Demographics Preferred Language Luxembourgish Marital Status Unknown Sabianism Affiliation Unknown Race Unknown Ethnic Group Unknown Author Author , ANTOINETTE KRAUSE Address Unknown Phone Immunization Unable to retrieve immunization data due to connection failure with Immunization Registry. Please try again later.
--- OUTSIDE RECORDS SUMMARY | 2016-12-14 09:02 | External Medical Summary Rpt ---
Author Author NELIDA Taylor, [employer] Organization [employer] Address Unknown Phone Unavailable
[2016-12-14 09:03] VITALS: BP 155/94
[2016-12-15] MEDS ORDERED: ZOFRAN ODT4 MG PO (13:47)
== END 2016-12-14 09:03 | disposition home or self-care (01) ==
LOC: ER 08:11
DX: S60.222A Contusion of left hand, initial encounter (principal); Z23 Encounter for immunization; K21.9 Gastro-esophageal reflux disease without esophagitis; I10 Essential (primary) hypertension; Z72.0 Tobacco use; W01.0XXA Fall on same level from slipping, tripping and stumbling without subsequent striking against object, initial encounter; Y92.009 Unspecified place in unspecified non-institutional (private) residence as the place of occurrence of the external cause